=== PATIENT | male | born 1995 | race Two or more races ===

== ENCOUNTER 2019-06-05 13:07 | Inpatient (IN) | payer OTHER ==
[~2019-06-05] VITALS: Ht 188 cm; Wt 111.4 kg
[2019-06-05] MEDS ORDERED: fentaNYL PF VIAL 100 MCG/2 ML VIAL IVP ONE (14:15)
[2019-06-05] MEDS ORDERED: IV NORMAL SALINE 1000ML BAG 1,000 ML IV ONE (14:15)
[2019-06-05] MEDS ORDERED: CLINDAMYCIN 600MG PREMIX 50 ML IV ONE (14:15)
[2019-06-05 14:26] LABS: BASO % 0 % (0-3); EOS % 0 % (0-3); HEMOGLOBIN 13.4 g/dL (13.0-17.5); LYMPH # 0.2 x10^3/uL (1.0-4.8); LYMPH % 2 % (24-48); MEAN CORPUSCULAR HEMOGLOBIN 30 pg (25-35); MEAN CORPUSCULAR HGB CONC 34 g/dL (31-37); MEAN CORPUSCULAR VOLUME 90 fL (79-100); MONO # 0.7 x10^3/uL (0.0-1.1); MONO % 6 % (0-9); NEUT # 11.4 x10^3/uL (1.8-7.7); NEUT % 92 % (31-73); PLATELET COUNT 217 x10^3/uL (140-400); RED BLOOD COUNT 4.45 x10^6/uL (4.30-5.70); RED CELL DISTRIBUTION WIDTH 14.2 % (11.5-14.5); WHITE BLOOD COUNT 12.4 x10^3/uL (4.0-11.0)
[2019-06-05 14:37] LABS: CALCIUM 8.3 mg/dL (8.5-10.1); POTASSIUM 3.5 mmol/L (3.5-5.1)
[2019-06-05 14:43] LABS: ALBUMIN 3.6 g/dL (3.4-5.0); TOTAL BILIRUBIN 1.2 mg/dL (0.2-1.0); TOTAL PROTEIN 7.3 g/dL (6.4-8.2)
[2019-06-05] MEDS ORDERED: CONTRAST GIVEN. MC PRN (15:00)
[2019-06-05] MEDS ORDERED: IOHEXOL 300 MG/ML 100ML VIAL. IV ONE (15:00)
--- NOTE | 2019-06-05 15:04 | RAD ---
PORTABLE CHEST 1V Clinical indications: Fever. Abscess. COMPARISON: None available. Findings: No acute lung infiltrate or pleural effusion or pulmonary edema or lung mass or pneumothorax is seen. The heart size, pulmonary vasculature, mediastinum and both anjel are unremarkable. Impression: No acute radiographic abnormality is seen. Electronically signed by: Chau Long MD (06/05/2019 3:02 PM) [facility] [place]
[2019-06-05 15:32] LABS: % BANDS 13 % (0-9); % EOS 1 % (0-5); % LYMPHS 1 % (24-48); % MONOS 5 % (0-10); % SEGS 80 % (35-66); PLT ESTIMATE ADEQUATE (ADEQUATE)
[2019-06-05 15:33] LABS: BILIRUBIN,URINE NEGATIVE (NEG); CLARITY,URINE CLEAR; COLOR,URINE YELLOW; NITRITE,URINE NEGATIVE (NEG); PH,URINE 7.5 (<5.0-8.0); PROTEIN,URINE NEGATIVE (NEG-TRACE); UROBILINOGEN,URINE 0.2 mg/dL (0.2 mg/dL)
--- NOTE | 2019-06-05 15:39 | RAD ---
Exam: CT maxillofacial with contrast INDICATION: Evaluate for dental abscess, right jaw TECHNIQUE: Sequential axial images through the maxillofacial obtained following the administration of 75 mL of Omni 300 IV contrast. Sagittal and coronal reformatted images were reconstructed from the axial data and reviewed. Comparisons: None FINDINGS: Visualized intracranial structures are unremarkable. Mucosal thickening is noted within the right maxillary sinus. Globes and intraorbital contents are normal. Periapical lucency surrounding the first left mandibular molar with cortical breakthrough along the buccal surface of the mandibular cortex. No focal fluid collection is identified. There is soft tissue edema overlying the cortical surface of the left mandible at the area of periapical lucency. Periapical lucency surrounding the right first maxillary molar with cortical breakthrough into the maxillary sinus. No acute fracture. IMPRESSION: 1. Periapical lucency surrounding the first right maxillary molar with cortical breakthrough into the right maxillary sinus. There is mucosal thickening in the right maxillary sinus. 2. Periapical lucency surrounding the first left mandibular molar with cortical breakthrough along the buccal surface of the mandibular cortex. Mild surrounding soft tissue thickening/inflammation without focal fluid collections suggest abscess. Exposure: One or more of the following in the visualized dose reduction techniques were utilized for this examination: 1. Automated exposure control 2. Adjustment of the MA and/or KV according to patient size 3. Use of iterative of reconstructive technique Electronically signed by: Salvador Jimenez MD (06/05/2019 3:36 PM) [id number]
[2019-06-05 15:40] LABS: BACTERIA,URINE 0 /HPF (0-FEW); RBC,URINE 0 /HPF (0-2); WBC,URINE OCC /HPF (0-4)
[2019-06-05] MEDS ORDERED: MORPHINE SULFATE 4 MG/ML VIAL. IV PRN (16:00)
--- NOTE | 2019-06-05 16:43 | PDOC1 ---
History and Physical Date of Admission Date of Admission DATE: 06/05/19 TIME: 16:38 Identification/Chief Complaint Chief Complaint "My head is melting" Source Source: Chart review, Patient History of Present Illness History of Present Illness Mr Bragg is a 23yo male incarcerated since 2017 with no PMHx who presents from correctional facility c/o feeling feverish and states his head is melting. Referred from the physician at [facility] and Dr. Moyer for tachycardia and fever on 06/04/2019 in the evening with facial swelling. Was given rocephin and flagyl in [facility] and continued to have pain in his jaw, face, head. In ED tachycardic, afebrile, but WBC 12.4 with left shift. K 3.5, bili 1.2, AST 240, ALT 431 No Abdominal pain, just feels strange and like his head is melting. Pain 7/10. He denies any IVDA or recent sick contacts. No nausea or vomiting or abdominal pain. Denies CP or SOB. CT maxillofacial reveals lucency surrounding the first right maxillary molar with cortical breakthrough into the right maxillary sinus. There is mucosal thickening in the right maxillary sinus. Periapical lucency surrounding the first left mandibular molar with cortical breakthrough along the buccal surface of the mandibular cortex. Mild surrounding soft tissue thickening/inflammation without focal fluid collections suggest abscess. Oral surgeon called, started on IV antibiotics and admitted for further treatment and care Past Medical History Cardiovascular: No pertinent hx Pulmonary: No pertinent hx GI: No pertinent hx Heme/Onc: No pertinent hx Hepatobiliary: No pertinent hx Psych: No pertinent hx Rheumatologic: No pertinent hx Infectious disease: No pertinent hx ENT: No pertinent hx Renal/: No pertinent hx Endocrine: No pertinent hx Dermatology: No pertinent hx Past Surgical History Past Surgical History: No pertinent history Family History Family History: Diabetes (Mother), Hypertension Social History Smoke: <1 pack per day ALCOHOL: none Drugs: Marijuana Current Medications Current Medications Current Medications Sodium Chloride 1,000 ml @ 1,000 mls/hr 1X ONCE IV Last administered on 06/05/19at 15:15; Start 06/05/19 at 14:15; Stop 06/05/19 at 15:14; Status DC Fentanyl Citrate (Fentanyl 2ml Vial) 50 mcg 1X ONCE IVP ; Start 06/05/19 at 14:15; Stop 06/05/19 at 14:29; Status DC Clindamycin Phosphate 50 ml @ 100 mls/hr 1X ONCE IV Last administered on 06/05/19at 15:15; Start 06/05/19 at 14:15; Stop 06/05/19 at 14:44; Status DC Iohexol (Omnipaque 300 Mg/ml) 75 ml 1X ONCE IV Last administered on 06/05/19at 15:01; Start 06/05/19 at 15:00; Stop 06/05/19 at 15:01; Status DC Info (CONTRAST GIVEN -- Rx MONITORING) 1 each PRN DAILY PRN MC SEE COMMENTS; Start 06/05/19 at 15:00; Stop 06/07/19 at 14:59 Morphine Sulfate (Morphine Sulfate) 4 mg PRN Q2HR PRN IV PRN PAIN; Start 06/05/19 at 16:00; Stop 06/06/19 at 15:59 Sodium Chloride 1,000 ml @ 75 mls/hr [id number] IV ; Start 06/05/19 at 15:58; Stop 06/06/19 at 15:57 Allergies Allergies: Coded Allergies: No Known Drug Allergies (Unverified , 06/05/19) ROS General: YES: Chills, Night Sweats, Fatigue, Malaise; No: Appetite, Other PSYCHOLOGICAL ROS: YES: Anxiety; No: Behavioral Disorder, Concentration difficultie, Decreased libido, Depression, Disorientation, Hallucinations, Hostility, Irritablity, Memory difficulties, Mood Swings, Obsessive thoughts, Physical abuse, Sexual abuse, Sleep disturbances, Suicidal ideation, Other Eyes: No Blurry vision, No Decreased vision, No Double vision, No Dry eyes, No Excessive tearing, No Eye Pain, No Itchy Eyes, No Loss of vision, No Photophobia, No Scotomata, No Uses contacts, No Uses glasses, No Other HEENT: YES: Heacaches, Oral lesions, Sinus pain; No: Visual Changes, Hearing change, Nasal congestion, Nasal discharge, Sore Throat, Epistaxis, Sneezing, Snoring, Tinnitus, Vertigo, Vocal changes, Other ALLERGY AND IMMUNOLOGY: No: Hives, Insect Bite Sensitivity, Itchy/Watery Eyes, Nasal Congestion, Post Nasal Drip, Seasonal Allergies, Other Hematological and Lymphatic: No: Bleeding Problems, Blood Clots, Blood Transfusions, Brusing, Night Sweats, Pallor, Swollen Lymph Nodes, Other ENDOCRINE: No: Breast Changes, Galactorrhea, Hair Pattern Changes, Hot Flashes, Malaise/lethargy, Mood Swings, Palpitations, Polydipsia/polyuria, Skin Changes, Temperature Intolerance, Unexpected Weight Changes, Other Breast: No New/Changing Breast Lumps, No Nipple changes, No Nipple discharge, No Other Respiratory: No: Cough, Hemoptysis, Orthopnea, Pleuritic Pain, Shortness of breath, SOB with excertion, Sputum Changes, Stridor, Tachypnea, Wheezing, Other Cardiovascular: No Chest Pain, No Palpitations, No Orthopnea, No Paroxysmal Noc. Dyspnea, No Edema, No Lt Headedness, No Other Gastrointestinal: No Nausea, No Vomiting, No Abdominal Pain, No Diarrhea, No Constipation, No Melena, No Hematochezia, No Other Genitourinary: No Dysuria, No Frequency, No Incontinence, No Hematuria, No Retention, No Discharge, No Urgency, No Pain, No Flank Pain, No Other, No , No , No , No , No , No , No Musculoskeletal: No Gait Disturbance, No Joint Pain, No Joint Stiffness, No Joint Swelling, No Muscle Pain, No Muscular Weakness, No Pain In:, No Swelling In:, No Other Neurological: No Behavorial Changes, No Bowel/Bladder ControlChng, No Confusion, No Dizziness, No Gait Disturbance, No Headaches, No Impaired Coord/balance, No Memory Loss, No Numbness/Tingling, No Seizures, No Speech Problems, No Tremors, No Visual Changes, No Weakness, No Other Skin: No Dry Skin, No Eczema, No Hair Changes, No Lumps, No Mole Changes, No Mottling, No Nail Changes, No Pruritus, No Rash, No Skin Lesion Changes, No Other, No Acne Physical Exam General: Alert, Oriented X3, Cooperative, mild distress HEENT: Atraumatic, PERRLA, EOMI, Mucous membr. moist/pink, Other (Right maxillary tenderness and abscessed tooth and left mandibular abscessed tooth) Lungs: Clear to auscultation, Normal air movement Heart: S1S2, RRR, no thrills, no rubs, no gallops, no murmurs Abdomen: Normal bowel sounds, Soft, No tenderness, No hepatosplenomegaly, No masses Rectal Exam: not examined Extremities: No clubbing, No cyanosis, No edema, Normal pulses, No tenderness/swelling Skin: No rashes, No breakdown, No significant lesion Neuro: Normal gait, Normal speech, Strength at 5/5 X4 ext, Normal tone, Sens ation intact, Cranial nerves 3-12 NL, Reflexes 2+ Psych/Mental Status: Mental status NL, Mood NL Vitals Vitals Vital Signs Date Time Temp Pulse Resp B/P (MAP) Pulse Ox O2 Delivery O2 Flow Rate FiO2 06/05/19 13:08 99.3 92 17 133/66 (88) 97 Room Air 99.3 Labs Labs Laboratory Tests Test 06/05/19 13:40 06/05/19 15:20 White Blood Count 12.4 x10^3/uL (4.0-11.0) Red Blood Count 4.45 x10^6/uL (4.30-5.70) Hemoglobin 13.4 g/dL (13.0-17.5) Hematocrit 40.0 % (39.0-53.0) Mean Corpuscular Volume 90 fL (79-100) Mean Corpuscular Hemoglobin 30 pg (25-35) Mean Corpuscular Hemoglobin Concent 34 g/dL (31-37) Red Cell Distribution Width 14.2 % (11.5-14.5) Platelet Count 217 x10^3/uL (140-400) Neutrophils (%) (Auto) 92 % (31-73) Lymphocytes (%) (Auto) 2 % (24-48) Monocytes (%) (Auto) 6 % (0-9) Eosinophils (%) (Auto) 0 % (0-3) Basophils (%) (Auto) 0 % (0-3) Neutrophils # (Auto) 11.4 x10^3/uL (1.8-7.7) Lymphocytes # (Auto) 0.2 x10^3/uL (1.0-4.8) Monocytes # (Auto) 0.7 x10^3/uL (0.0-1.1) Eosinophils # (Auto) 0.0 x10^3/uL (0.0-0.7) Basophils # (Auto) 0.0 x10^3/uL (0.0-0.2) Segmented Neutrophils % 80 % (35-66) Band Neutrophils % 13 % (0-9) Lymphocytes % 1 % (24-48) Monocytes % 5 % (0-10) Eosinophils % 1 % (0-5) Platelet Estimate Adequate (ADEQUATE) Sodium Level 139 mmol/L (136-145) Potassium Level 3.5 mmol/L (3.5-5.1) Chloride Level 103 mmol/L (98-107) Carbon Dioxide Level 25 mmol/L (21-32) Anion Gap 11 (6-14) Blood Urea Nitrogen 8 mg/dL (8-26) Creatinine 1.0 mg/dL (0.7-1.3) Estimated GFR (Cockcroft-Gault) 91.0 BUN/Creatinine Ratio 8 (6-20) Glucose Level 119 mg/dL (70-99) Lactic Acid Level 1.4 mmol/L (0.4-2.0) Calcium Level 8.3 mg/dL (8.5-10.1) Total Bilirubin 1.2 mg/dL (0.2-1.0) Aspartate Amino Transf (AST/SGOT) 240 U/L (15-37) Alanine Aminotransferase (ALT/SGPT) 431 U/L (16-63) Alkaline Phosphatase 113 U/L (46-116) Total Protein 7.3 g/dL (6.4-8.2) Albumin 3.6 g/dL (3.4-5.0) Albumin/Globulin Ratio 1.0 (1.0-1.7) Urine Collection Type Unknown Urine Color Yellow Urine Clarity Clear Urine pH 7.5 (<5.0-8.0) Urine Specific [place] <=1.005 (1.000-1.030) Urine Protein Negative mg/dL (NEG-TRACE) Urine Glucose (UA) Negative mg/dL (NEG) Urine Ketones (Stick) Negative mg/dL (NEG) Urine Blood Negative (NEG) Urine Nitrite Negative (NEG) Urine Bilirubin Negative (NEG) Urine Urobilinogen Dipstick 0.2 mg/dL (0.2 mg/dL) Urine Leukocyte Esterase Negative (NEG) Urine RBC 0 /HPF (0-2) Urine WBC Occ /HPF (0-4) Urine Bacteria 0 /HPF (0-FEW) Laboratory Tests Test 06/05/19 13:40 06/05/19 15:20 White Blood Count 12.4 x10^3/uL (4.0-11.0) Red Blood Count 4.45 x10^6/uL (4.30-5.70) Hemoglobin 13.4 g/dL (13.0-17.5) Hematocrit 40.0 % (39.0-53.0) Mean Corpuscular Volume 90 fL (79-100) Mean Corpuscular Hemoglobin 30 pg (25-35) Mean Corpuscular Hemoglobin Concent 34 g/dL (31-37) Red Cell Distribution Width 14.2 % (11.5-14.5) Platelet Count 217 x10^3/uL (140-400) Neutrophils (%) (Auto) 92 % (31-73) Lymphocytes (%) (Auto) 2 % (24-48) Monocytes (%) (Auto) 6 % (0-9) Eosinophils (%) (Auto) 0 % (0-3) Basophils (%) (Auto) 0 % (0-3) Neutrophils # (Auto) 11.4 x10^3/uL (1.8-7.7) Lymphocytes # (Auto) 0.2 x10^3/uL (1.0-4.8) Monocytes # (Auto) 0.7 x10^3/uL (0.0-1.1) Eosinophils # (Auto) 0.0 x10^3/uL (0.0-0.7) Basophils # (Auto) 0.0 x10^3/uL (0.0-0.2) Segmented Neutrophils % 80 % (35-66) Band Neutrophils % 13 % (0-9) Lymphocytes % 1 % (24-48) Monocytes % 5 % (0-10) Eosinophils % 1 % (0-5) Platelet Estimate Adequate (ADEQUATE) Sodium Level 139 mmol/L (136-145) Potassium Level 3.5 mmol/L (3.5-5.1) Chloride Level 103 mmol/L (98-107) Carbon Dioxide Level 25 mmol/L (21-32) Anion Gap 11 (6-14) Blood Urea Nitrogen 8 mg/dL (8-26) Creatinine 1.0 mg/dL (0.7-1.3) Estimated GFR (Cockcroft-Gault) 91.0 BUN/Creatinine Ratio 8 (6-20) Glucose Level 119 mg/dL (70-99) Lactic Acid Level 1.4 mmol/L (0.4-2.0) Calcium Level 8.3 mg/dL (8.5-10.1) Total Bilirubin 1.2 mg/dL (0.2-1.0) Aspartate Amino Transf (AST/SGOT) 240 U/L (15-37) Alanine Aminotransferase (ALT/SGPT) 431 U/L (16-63) Alkaline Phosphatase 113 U/L (46-116) Total Protein 7.3 g/dL (6.4-8.2) Albumin 3.6 g/dL (3.4-5.0) Albumin/Globulin Ratio 1.0 (1.0-1.7) Urine Collection Type Unknown Urine Color Yellow Urine Clarity Clear Urine pH 7.5 (<5.0-8.0) Urine Specific [place] <=1.005 (1.000-1.030) Urine Protein Negative mg/dL (NEG-TRACE) Urine Glucose (UA) Negative mg/dL (NEG) Urine Ketones (Stick) Negative mg/dL (NEG) Urine Blood Negative (NEG) Urine Nitrite Negative (NEG) Urine Bilirubin Negative (NEG) Urine Urobilinogen Dipstick 0.2 mg/dL (0.2 mg/dL) Urine Leukocyte Esterase Negative (NEG) Urine RBC 0 /HPF (0-2) Urine WBC Occ /HPF (0-4) Urine Bacteria 0 /HPF (0-FEW) Images Images CT Maxillofacial: Visualized intracranial structures are unremarkable. Mucosal thickening is noted within the right maxillary sinus. Globes and intraorbital contents are normal. Periapical lucency surrounding the first left mandibular molar with cortical breakthrough along the buccal surface of the mandibular cortex. No focal fluid collection is identified. There is soft tissue edema overlying the cortical surface of the left mandible at the area of periapical lucency. Periapical lucency surrounding the right first maxillary molar with cortical br eakthrough into the maxillary sinus. No acute fracture. IMPRESSION: 1. Periapical lucency surrounding the first right maxillary molar with cortical breakthrough into the right maxillary sinus. There is mucosal thickening in the right maxillary sinus. 2. Periapical lucency surrounding the first left mandibular molar with cortical breakthrough along the buccal surface of the mandibular cortex. Mild surrounding soft tissue thickening/inflammation without focal fluid collections suggest abscess. CXR - Findings: No acute lung infiltrate or pleural effusion or pulmonary edema or lung mass or pneumothorax is seen. The heart size, pulmonary vasculature, mediastinum and both anjel are unremarkable. Impression: No acute radiographic abnormality is seen. RUQ US - Liver demonstrates homogenous echotexture. Hepatopedal flow noted within the portal vein. Gallstone noted within the neck of the gallbladder. Gallbladder wall measures 4 mm in diameter. No pericholecystic fluid. No sonographic Munroe sign. Common bile duct measures 4 mm in diameter. Right kidney measures 11.6 cm in length. No hydronephrosis. Visualized portions of the large and small bowel are unremarkable. IMPRESSION: 1. Cholelithiasis without secondary evidence of acute cholecystitis. 2. Normal sonographic appearance of the liver. 3. No right-sided hydronephrosis. VTE Prophylaxis Ordered VTE Prophylaxis Devices: Yes VTE Pharmacological Prophylaxi: No Assessment/Plan Assessment/Plan A/P: Right maxillary odontogenic infection - dental caries with concomitant sinusitis in maxilla. Maxillofacial surgery consulted. Empiric antibiotics Left mandibular odontogenic infection - dental caries with jaw infection as well. Same. Pain control Sepsis - likely 2/2 right maxillary sinus infection due to dental infection. Surgery consulted. Antibiotics given, fluids administered. Acute transaminitis - RUQ normal, will check hepatitis panel. 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 FEN - NPO after midnight PPX - SCDs FULL CODE Dispo - inpatient for maxillary tooth infection invading right maxillary sinus ADRIAN ORELLANA MD Jun 05, 2019 16:43
--- NOTE | 2019-06-05 16:46 | PHYS DOC ---
Past Medical History Past Medical History: No Pertinent History Past Surgical History: No Surgical History Smoking Status: Current Some Day Smoker Additional Information: Pt. admits to smoking marijuana Alcohol Use: None Adult General Chief Complaint Chief Complaint: ABSCESS HPI HPI Patient is a 23 year old M REFERRED FROM SNF WITH FEVER AND FACIAL/JAW PAIN. ONSET YESTERDAY WAS TACHYCARDIC AND FEBRILE LAST NIGHT, HAD FACIAL SWELLING. GOT CEFTRIAXONE AND FLAGYL. THIS AM STILL TACHY [facility] MD CALLED DR SPEARS (WHO I ALSO SPOKE WITH) AND ASKED TO BE TRANSFERRED TO [facility] FOR ADMISSION AND EVLUATION PATIENT STATES HE KNOWS HE HAS BAD TEETH, PAIN MODERATE THROBBING RIGHT FACE RADIATES DIFFUSELY. NO COUGH, NO SOB DENIES ABDO PAIN Review of Systems Review of Systems Constitutional: Eyes: Denies change in visual acuity, redness, or eye pain [] HENT: Denies nasal congestion or sore throat [] Respiratory: Denies cough or shortness of breath [] Cardiovascular: No additional information not addressed in HPI [] Neurologic: Denies headache, focal weakness or sensory changes [] Endocrine: Denies polyuria or polydipsia [] All other systems were reviewed and found to be within normal limits, except as documented in this note. Current Medications Current Medications Current Medications Medications (Trade) Dose Ordered Sig/Kirti Start Time Stop Time Status Last Admin Dose Admin Clindamycin Phosphate 50 ml @ 100 mls/hr 1X ONCE 06/05/19 14:15 06/05/19 14:44 DC 06/05/19 15:15 100 MLS/HR Fentanyl Citrate (Fentanyl 2ml Vial) 50 mcg 1X ONCE 06/05/19 14:15 06/05/19 14:29 DC Info (CONTRAST GIVEN -- Rx MONITORING) 1 each PRN DAILY PRN 06/05/19 15:00 06/07/19 14:59 Iohexol (Omnipaque 300 Mg/ml) 75 ml 1X ONCE 06/05/19 15:00 06/05/19 15:01 DC 06/05/19 15:01 75 ML Morphine Sulfate (Morphine Sulfate) 4 mg PRN Q2HR PRN 06/05/19 16:00 06/06/19 15:59 Sodium Chloride 1,000 ml @ 75 mls/hr [id number] 06/05/19 15:58 3/20/20 15:57 Allergies Allergies Allergies Coded Allergies Type Severity Reaction Last Updated Verified No Known Drug Allergies 06/05/19 No Physical Exam Physical Exam Constitutional: Well developed, well nourished, no acute distress, non-toxic appearance. [] HENT: SWELLING NOTED TO RIGHT FACE, RIGHT MAXILLARY IS TTP NOTED. MILD SWELLING. POOR DENTITION. RIGHT MAXIALLARY GUM AREA ALSO SWOLLEN. Eyes: PERRLA, EOMI, conjunctiva normal, no discharge. [] Neck: Normal range of motion, no tenderness, supple, no stridor. [] Cardiovascular:Heart rate regular rhythm, no murmur [] Lungs & Thorax: Bilateral breath sounds clear to auscultation [] Abdomen: Bowel sounds normal, soft, no tenderness, no masses, no pulsatile masses. [] Skin: Warm, dry, no erythema, no rash. [] Back: No tenderness, no CVA tenderness. [] Extremities: No tenderness, no cyanosis, no clubbing, ROM intact, no edema. [] Neurologic: Alert and oriented X 3, normal motor function, normal sensory function, no focal deficits noted. [] Psychologic: Affect normal, judgement normal, mood normal. [] Current Patient Data Vital Signs Vital Signs Date Time Temp Pulse Resp B/P (MAP) Pulse Ox O2 Delivery O2 Flow Rate FiO2 06/05/19 13:08 99.3 92 17 133/66 (88) 97 Room Air 99.3 Lab Values Laboratory Tests Test 06/05/19 13:40 06/05/19 15:20 White Blood Count 12.4 x10^3/uL (4.0-11.0) H Red Blood Count 4.45 x10^6/uL (4.30-5.70) Hemoglobin 13.4 g/dL (13.0-17.5) Hematocrit 40.0 % (39.0-53.0) Mean Corpuscular Volume 90 fL (79-100) Mean Corpuscular Hemoglobin 30 pg (25-35) Mean Corpuscular Hemoglobin Concent 34 g/dL (31-37) Red Cell Distribution Width 14.2 % (11.5-14.5) Platelet Count 217 x10^3/uL (140-400) Neutrophils (%) (Auto) 92 % (31-73) H Lymphocytes (%) (Auto) 2 % (24-48) L Monocytes (%) (Auto) 6 % (0-9) Eosinophils (%) (Auto) 0 % (0-3) Basophils (%) (Auto) 0 % (0-3) Neutrophils # (Auto) 11.4 x10^3/uL (1.8-7.7) H Lymphocytes # (Auto) 0.2 x10^3/uL (1.0-4.8) L Monocytes # (Auto) 0.7 x10^3/uL (0.0-1.1) Eosinophils # (Auto) 0.0 x10^3/uL (0.0-0.7) Basophils # (Auto) 0.0 x10^3/uL (0.0-0.2) Segmented Neutrophils % 80 % (35-66) H Band Neutrophils % 13 % (0-9) H Lymphocytes % 1 % (24-48) L Monocytes % 5 % (0-10) Eosinophils % 1 % (0-5) Platelet Estimate Adequate (ADEQUATE) Sodium Level 139 mmol/L (136-145) Potassium Level 3.5 mmol/L (3.5-5.1) Chloride Level 103 mmol/L (98-107) Carbon Dioxide Level 25 mmol/L (21-32) Anion Gap 11 (6-14) Blood Urea Nitrogen 8 mg/dL (8-26) Creatinine 1.0 mg/dL (0.7-1.3) Estimated GFR (Cockcroft-Gault) 91.0 BUN/Creatinine Ratio 8 (6-20) Glucose Level 119 mg/dL (70-99) H Lactic Acid Level 1.4 mmol/L (0.4-2.0) Calcium Level 8.3 mg/dL (8.5-10.1) L Total Bilirubin 1.2 mg/dL (0.2-1.0) H Aspartate Amino Transferase (AST) 240 U/L (15-37) H Alanine Aminotransferase (ALT) 431 U/L (16-63) H Alkaline Phosphatase 113 U/L (46-116) Total Protein 7.3 g/dL (6.4-8.2) Albumin 3.6 g/dL (3.4-5.0) Albumin/Globulin Ratio 1.0 (1.0-1.7) Urine Collection Type Unknown Urine Color Yellow Urine Clarity Clear Urine pH 7.5 (<5.0-8.0) Urine Specific [place] <=1.005 (1.000-1.030) Urine Protein Negative mg/dL (NEG-TRACE) Urine Glucose (UA) Negative mg/dL (NEG) Urine Ketones (Stick) Negative mg/dL (NEG) Urine Blood Negative (NEG) Urine Nitrite Negative (NEG) Urine Bilirubin Negative (NEG) Urine Urobilinogen Dipstick 0.2 mg/dL (0.2 mg/dL) Urine Leukocyte Esterase Negative (NEG) Urine RBC 0 /HPF (0-2) Urine WBC Occ /HPF (0-4) Urine Bacteria 0 /HPF (0-FEW) Laboratory Tests 06/05/19 13:40 Laboratory Tests 06/05/19 13:40 EKG EKG [] Radiology/Procedures Radiology/Procedures [] COMPARISON: None available. Findings: No acute lung infiltrate or pleural effusion or pulmonary edema or lung mass or pneumothorax is seen. The heart size, pulmonary vasculature, mediastinum and both anjel are unremarkable. Impression: No acute radiographic abnormality is seen. Electronically signed by: Caitlin Long MD (06/05/2019 3:02 PM) [facility] DICTATED and SIGNED BY: CAITLIN LONG MD DATE: 06/05/19 1502 No acute fracture. IMPRESSION: 1. Periapical lucency surrounding the first right maxillary molar with cortical breakthrough into the right maxillary sinus. There is mucosal thickening in the right maxillary sinus. 2. Periapical lucency surrounding the first left mandibular molar with cortical breakthrough along the buccal surface of the mandibular cortex. Mild surrounding soft tissue thickening/inflammation without focal fluid collections suggest abscess. Exposure: One or more of the following in the visualized dose reduction techniques were utilized for this examination: 1. Automated exposure control 2. Adjustment of the MA and/or KV according to patient size 3. Use of iterative of reconstructive technique Electronically signed by: Salvador Jimenez MD (06/05/2019 3:36 PM) [id number] Impressions: IMPRESSION: 1. Periapical lucency surrounding the first right maxillary molar with cortical breakthrough into the right maxillary sinus. There is mucosal thickening in the right maxillary sinus. 2. Periapical lucency surrounding the first left mandibular molar with cortical breakthrough along the buccal surface of the mandibular cortex. Mild surrounding soft tissue thickening/inflammation without focal fluid collections suggest abscess. Exposure: One or more of the following in the visualized dose reduction techniques were utilized for this examination: 1. Automated exposure control 2. Adjustment of the MA and/or KV according to patient size 3. Use of iterative of reconstructive technique Electronically signed by: Salvador Jimenez MD (06/05/2019 3:36 PM) [id number] Course & Med Decision Making Course & Med Decision Making Pertinent Labs and Imaging studies reviewed. (See chart for details) []23 YO PRISONER WITH FEVER FACIAL PAIN AND SWELLING, CT NOTED ABOVE, LIKLEY ODONTOGENIC INFECTION. NO DEFINITE DRAINABLE ABSCESS SEEN ON CT BUT CORTICAL BREAKTHROUGH TO MAXILLARY SINUS NOTED. IV ABX GIVEN I HAD SPOKEN WITH DR SPEARS PRIOR TO THE PATIENTS ARRIVAL ASKED FOR HOSPITALIST ADMIT AND HE WILL CONSULT. I SPOKE WITH DR ORELLANA NOTED ELEV LFT'S, RUQ U/S IS PENDING. PT DENIES ETOH, DENIES PREVIOUS MEDICAL HISTORY, NO RUQ TTP ON EXAM. PATIENT IS AWAKE AND ALERT, SUPPLE NECK Dragon Disclaimer Dragon Disclaimer This electronic medical record was generated, in whole or in part, using a voice recognition dictation system. Departure Departure Impression: Primary Impression: Odontogenic infection of jaw Disposition: ADMITTED INPATIENT Admitting Physician: FEDE Condition: STABLE Referrals: NO PCP (PCP) SLIME MARQUEZ MD Jun 05, 2019 16:46
--- NOTE | 2019-06-05 16:57 | RAD ---
Exam: Ultrasound abdomen limited Indication: Elevated LFTs Technique: Real-time grayscale and color Doppler images of the right upper quadrant were obtained by the department insurance claims specialist. Comparisons: None FINDINGS: Liver demonstrates homogenous echotexture. Hepatopedal flow noted within the portal vein. Gallstone noted within the neck of the gallbladder. Gallbladder wall measures 4 mm in diameter. No pericholecystic fluid. No sonographic Munroe sign. Common bile duct measures 4 mm in diameter. Right kidney measures 11.6 cm in length. No hydronephrosis. Visualized portions of the large and small bowel are unremarkable. IMPRESSION: 1. Cholelithiasis without secondary evidence of acute cholecystitis. 2. Normal sonographic appearance of the liver. 3. No right-sided hydronephrosis. Electronically signed by: Salvador Jimenez MD (06/05/2019 4:54 PM) [id number]
[2019-06-05] MEDS ORDERED: ONDANSETRON PF 4 MG/2 ML VIAL. IV PRN (17:45)
[2019-06-05] MEDS ORDERED: DOCUSATE SODIUM 100 MG CAPSULE. PO PRN (17:45)
[2019-06-05] MEDS ORDERED: ACETAMINOPHEN 325 MG TABLET. PO PRN (17:45)
[2019-06-05] MEDS ORDERED: LIDOCAINE 2% VISCOUS 15 ML SOLUTION. SWSW PRN (17:45)
[2019-06-05 17:50] VITALS: BP 129/75
[2019-06-05] MEDS: KETOROLAC 30 MG/ML VIAL. IVP PRN (17:57)
[2019-06-05] MEDS: PIPERACILLIN/TAZOBACTAM 3.375 GM in IV NORMAL SALINE 50ML 50 ML IV SCH ×2 (17:57→23:16)
[2019-06-05] MEDS: IV NORMAL SALINE 1000ML BAG 1,000 ML IV SCH (17:57)
--- NOTE | 2019-06-05 18:20 | PDOC1 ---
History and Physical Date of Admission Date of Admission 06/05/2019 Identification/Chief Complaint Chief Complaint Bilateral facial pain Headache Problems: (1) Odontogenic infection of jaw Source Source: Patient History of Present Illness History of Present Illness Pt reports weeks of pain, alleviated somewhat by antibiotics Pt states that he missed his appointment for extraction the other day Past Medical History Cardiovascular: No pertinent hx Pulmonary: No pertinent hx GI: No pertinent hx Heme/Onc: No pertinent hx Hepatobiliary: No pertinent hx, Other (recent spike in labs, see note/labs) Psych: No pertinent hx Rheumatologic: No pertinent hx Infectious disease: No pertinent hx ENT: No pertinent hx Renal/: No pertinent hx Endocrine: No pertinent hx Dermatology: No pertinent hx Past Surgical History Past Surgical History: No pertinent history Family History Family History: Diabetes (Mother), Hypertension Social History Smoke: Quit ALCOHOL: other (history) Drugs: Marijuana, Other (previous use) Current Problem List Problem List Problems Medical Problems: (1) Odontogenic infection of jaw Status: Acute Current Medications Current Medications Current Medications Medications (Trade) Dose Ordered Sig/Kirti Start Time Stop Time Status Last Admin Dose Admin Acetaminophen (Tylenol) 650 mg PRN Q4HRS PRN 06/05/19 17:45 Clindamycin Phosphate 50 ml @ 100 mls/hr 1X ONCE 06/05/19 14:15 06/05/19 14:44 DC 06/05/19 15:15 100 MLS/HR Docusate Sodium (Colace) 100 mg PRN BID PRN 06/05/19 17:45 Fentanyl Citrate (Fentanyl 2ml Vial) 50 mcg 1X ONCE 06/05/19 14:15 06/05/19 14:29 DC Info (CONTRAST GIVEN -- Rx MONITORING) 1 each PRN DAILY PRN 06/05/19 15:00 06/07/19 14:59 Iohexol (Omnipaque 300 Mg/ml) 75 ml 1X ONCE 06/05/19 15:00 06/05/19 15:01 DC 06/05/19 15:01 75 ML Ketorolac Tromethamine (Toradol 30mg Vial) 30 mg PRN Q6HRS PRN 06/05/19 17:45 06/10/19 17:44 06/05/19 17:57 30 MG Lidocaine HCl (Viscous Lidocaine) 15 ml PRN Q4HRS PRN 06/05/19 17:45 Metronidazole 100 ml @ 100 mls/hr Q8HRS 06/05/19 18:30 Morphine Sulfate (Morphine Sulfate) 4 mg PRN Q2HR PRN 06/05/19 16:00 06/06/19 15:59 Ondansetron HCl (Zofran) 4 mg PRN Q4HRS PRN 06/05/19 17:45 Piperacillin Sod/ Tazobactam Sod 3.375 gm/Sodium Chloride 50 ml @ 100 mls/hr Q6HRS 06/05/19 18:00 06/05/19 17:57 100 MLS/HR Sodium Chloride 1,000 ml @ 75 mls/hr [id number] 06/05/19 15:58 06/06/19 15:57 06/05/19 17:57 75 MLS/HR Tramadol HCl (Ultram) 50 mg PRN Q6HRS PRN 06/05/19 18:00 Allergies Allergies Allergies Coded Allergies Type Severity Reaction Last Updated Verified No Known Drug Allergies 06/05/19 No ROS Review of System CONSTITUTIONAL: fever (low risk for COVID 19, inmate at [facility]) EYES: No recent changes SKIN: No rash or itching CARDIOVASCULAR: No chest pain, syncope, palpitations, or edema RESPIRATORY: No SOB or cough GASTROINTESTINAL: No nausea, vomiting or abdominal pain ++odontogenic pain ++ NEUROLOGICAL: No headaches or weakness ENDOCRINE: No cold or heat intolerance GENITOURINARY: No urgency or frequency of urination MUSCULOSKELETAL: No back pain or joint pain LYMPHATICS: No enlarged lymph nodes PSYCHIATRIC: No anxiety or depression Physical Exam Physical Exam GEN.: No apparent distress. Alert and oriented. HEENT: Head is normocephalic, atraumatic +mild buccal pain at # 1,2 and 18 (2, 18 fractured below gumline) + inferior boarder of mandible is palpable SANTOSH > 40mm, FOM supple, FROM tongue, uvula at midline NECK: Supple. FROM neck LUNGS: Clear to auscultation. HEART: RRR, S1, S2 present. Peripheral pulses intact ABDOMEN: Soft, nontender. Positive bowel sounds. EXTREMITIES: Without any cyanosis. NEUROLOGIC: Normal speech, normal tone PSYCHIATRIC: Normal affect, normal mood. SKIN: No ulcerations Vitals Vitals Vital Signs Date Time Temp Pulse Resp B/P (MAP) Pulse Ox O2 Delivery O2 Flow Rate FiO2 06/05/19 17:50 98.1 89 16 129/75 (93) 98 Room Air 98.1 Labs Labs Laboratory Tests Test 06/05/19 13:40 06/05/19 15:20 White Blood Count 12.4 x10^3/uL (4.0-11.0) Red Blood Count 4.45 x10^6/uL (4.30-5.70) Hemoglobin 13.4 g/dL (13.0-17.5) Hematocrit 40.0 % (39.0-53.0) Mean Corpuscular Volume 90 fL (79-100) Mean Corpuscular Hemoglobin 30 pg (25-35) Mean Corpuscular Hemoglobin Concent 34 g/dL (31-37) Red Cell Distribution Width 14.2 % (11.5-14.5) Platelet Count 217 x10^3/uL (140-400) Neutrophils (%) (Auto) 92 % (31-73) Lymphocytes (%) (Auto) 2 % (24-48) Monocytes (%) (Auto) 6 % (0-9) Eosinophils (%) (Auto) 0 % (0-3) Basophils (%) (Auto) 0 % (0-3) Neutrophils # (Auto) 11.4 x10^3/uL (1.8-7.7) Lymphocytes # (Auto) 0.2 x10^3/uL (1.0-4.8) Monocytes # (Auto) 0.7 x10^3/uL (0.0-1.1) Eosinophils # (Auto) 0.0 x10^3/uL (0.0-0.7) Basophils # (Auto) 0.0 x10^3/uL (0.0-0.2) Segmented Neutrophils % 80 % (35-66) Band Neutrophils % 13 % (0-9) Lymphocytes % 1 % (24-48) Monocytes % 5 % (0-10) Eosinophils % 1 % (0-5) Platelet Estimate Adequate (ADEQUATE) Sodium Level 139 mmol/L (136-145) Potassium Level 3.5 mmol/L (3.5-5.1) Chloride Level 103 mmol/L (98-107) Carbon Dioxide Level 25 mmol/L (21-32) Anion Gap 11 (6-14) Blood Urea Nitrogen 8 mg/dL (8-26) Creatinine 1.0 mg/dL (0.7-1.3) Estimated GFR (Cockcroft-Gault) 91.0 BUN/Creatinine Ratio 8 (6-20) Glucose Level 119 mg/dL (70-99) Lactic Acid Level 1.4 mmol/L (0.4-2.0) Calcium Level 8.3 mg/dL (8.5-10.1) Total Bilirubin 1.2 mg/dL (0.2-1.0) Aspartate Amino Transf (AST/SGOT) 240 U/L (15-37) Alanine Aminotransferase (ALT/SGPT) 431 U/L (16-63) Alkaline Phosphatase 113 U/L (46-116) Total Protein 7.3 g/dL (6.4-8.2) Albumin 3.6 g/dL (3.4-5.0) Albumin/Globulin Ratio 1.0 (1.0-1.7) Thyroid Stimulating Hormone (TSH) 0.434 uIU/mL (0.358-3.74) Urine Collection Type Unknown Urine Color Yellow Urine Clarity Clear Urine pH 7.5 (<5.0-8.0) Urine Specific [place] <=1.005 (1.000-1.030) Urine Protein Negative mg/dL (NEG-TRACE) Urine Glucose (UA) Negative mg/dL (NEG) Urine Ketones (Stick) Negative mg/dL (NEG) Urine Blood Negative (NEG) Urine Nitrite Negative (NEG) Urine Bilirubin Negative (NEG) Urine Urobilinogen Dipstick 0.2 mg/dL (0.2 mg/dL) Urine Leukocyte Esterase Negative (NEG) Urine RBC 0 /HPF (0-2) Urine WBC Occ /HPF (0-4) Urine Bacteria 0 /HPF (0-FEW) Laboratory Tests Test 06/05/19 13:40 06/05/19 15:20 White Blood Count 12.4 x10^3/uL (4.0-11.0) Red Blood Count 4.45 x10^6/uL (4.30-5.70) Hemoglobin 13.4 g/dL (13.0-17.5) Hematocrit 40.0 % (39.0-53.0) Mean Corpuscular Volume 90 fL (79-100) Mean Corpuscular Hemoglobin 30 pg (25-35) Mean Corpuscular Hemoglobin Concent 34 g/dL (31-37) Red Cell Distribution Width 14.2 % (11.5-14.5) Platelet Count 217 x10^3/uL (140-400) Neutrophils (%) (Auto) 92 % (31-73) Lymphocytes (%) (Auto) 2 % (24-48) Monocytes (%) (Auto) 6 % (0-9) Eosinophils (%) (Auto) 0 % (0-3) Basophils (%) (Auto) 0 % (0-3) Neutrophils # (Auto) 11.4 x10^3/uL (1.8-7.7) Lymphocytes # (Auto) 0.2 x10^3/uL (1.0-4.8) Monocytes # (Auto) 0.7 x10^3/uL (0.0-1.1) Eosinophils # (Auto) 0.0 x10^3/uL (0.0-0.7) Basophils # (Auto) 0.0 x10^3/uL (0.0-0.2) Segmented Neutrophils % 80 % (35-66) Band Neutrophils % 13 % (0-9) Lymphocytes % 1 % (24-48) Monocytes % 5 % (0-10) Eosinophils % 1 % (0-5) Platelet Estimate Adequate (ADEQUATE) Sodium Level 139 mmol/L (136-145) Potassium Level 3.5 mmol/L (3.5-5.1) Chloride Level 103 mmol/L (98-107) Carbon Dioxide Level 25 mmol/L (21-32) Anion Gap 11 (6-14) Blood Urea Nitrogen 8 mg/dL (8-26) Creatinine 1.0 mg/dL (0.7-1.3) Estimated GFR (Cockcroft-Gault) 91.0 BUN/Creatinine Ratio 8 (6-20) Glucose Level 119 mg/dL (70-99) Lactic Acid Level 1.4 mmol/L (0.4-2.0) Calcium Level 8.3 mg/dL (8.5-10.1) Total Bilirubin 1.2 mg/dL (0.2-1.0) Aspartate Amino Transf (AST/SGOT) 240 U/L (15-37) Alanine Aminotransferase (ALT/SGPT) 431 U/L (16-63) Alkaline Phosphatase 113 U/L (46-116) Total Protein 7.3 g/dL (6.4-8.2) Albumin 3.6 g/dL (3.4-5.0) Albumin/Globulin Ratio 1.0 (1.0-1.7) Thyroid Stimulating Hormone (TSH) 0.434 uIU/mL (0.358-3.74) Urine Collection Type Unknown Urine Color Yellow Urine Clarity Clear Urine pH 7.5 (<5.0-8.0) Urine Specific [place] <=1.005 (1.000-1.030) Urine Protein Negative mg/dL (NEG-TRACE) Urine Glucose (UA) Negative mg/dL (NEG) Urine Ketones (Stick) Negative mg/dL (NEG) Urine Blood Negative (NEG) Urine Nitrite Negative (NEG) Urine Bilirubin Negative (NEG) Urine Urobilinogen Dipstick 0.2 mg/dL (0.2 mg/dL) Urine Leukocyte Esterase Negative (NEG) Urine RBC 0 /HPF (0-2) Urine WBC Occ /HPF (0-4) Urine Bacteria 0 /HPF (0-FEW) Images Images no fluid loculation non restorable # 1, 2, 18 supraeruption of #1 Destruction of bone around 1,2,18 Destruction of bone above #2 into sinus cavity VTE Prophylaxis Ordered VTE Prophylaxis Devices: Yes VTE Pharmacological Prophylaxi: No Assessment/Plan Assessment/Plan 23 yom inmate at [facility] 1-2 weeks of increasing odontogenic pain (Upper right and lower left) non restorable teeth # 1, 2 and # 18 local vestibular abscess upper right face, and lower left face PLAN: Feed now, until midnight 06.05.19 Make NPO after Midnight for surgery 06.06.2019 To OR tomorrow afternoon (2-3pm) for extraction of abscessed and non restorable teeth #1,2, 18 Incision and drainage and debridement of upper right maxilla and lower left mandible (intraoral incisions) Will book sx 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 Amaro (and ID if needed) ROSANGELA SPEARS DMD Jun 05, 2019 18:20
[2019-06-05 19:30] VITALS: BP 115/45
[2019-06-05 23:22] VITALS: BP 120/50
[2019-06-05] MEDS: traMADol 50 MG TABLET PO PRN (23:25)
[2019-06-06] MEDS: KETOROLAC 30 MG/ML VIAL. IVP PRN ×2 (01:41→23:35)
[2019-06-06 03:50] VITALS: BP 112/70
[2019-06-06 05:09] LABS: BASO % 0 % (0-3); EOS # 0.3 x10^3/uL (0.0-0.7); EOS % 4 % (0-3); HEMATOCRIT 35.5 % (39.0-53.0); LYMPH # 1.1 x10^3/uL (1.0-4.8); LYMPH % 17 % (24-48); MEAN CORPUSCULAR HEMOGLOBIN 31 pg (25-35); MEAN CORPUSCULAR HGB CONC 34 g/dL (31-37); MEAN CORPUSCULAR VOLUME 91 fL (79-100); MONO # 0.6 x10^3/uL (0.0-1.1); MONO % 9 % (0-9); NEUT # 4.4 x10^3/uL (1.8-7.7); NEUT % 69 % (31-73); PLATELET COUNT 176 x10^3/uL (140-400); RED BLOOD COUNT 3.91 x10^6/uL (4.30-5.70); RED CELL DISTRIBUTION WIDTH 14.3 % (11.5-14.5); WHITE BLOOD COUNT 6.4 x10^3/uL (4.0-11.0)
[2019-06-06 05:22] LABS: ALBUMIN/GLOBULIN RATIO 0.9 (1.0-1.7); CALCIUM 7.8 mg/dL (8.5-10.1); POTASSIUM 3.7 mmol/L (3.5-5.1); TOTAL PROTEIN 6.2 g/dL (6.4-8.2)
[2019-06-06] MEDS: PIPERACILLIN/TAZOBACTAM 3.375 GM in IV NORMAL SALINE 50ML 50 ML IV SCH ×4 (05:38→23:35)
[2019-06-06 07:00] VITALS: BP_SYST 108
[2019-06-06] MEDS: IV NORMAL SALINE 1000ML BAG 1,000 ML IV SCH (07:56)
[2019-06-06] MEDS: traMADol 50 MG TABLET PO PRN (07:56)
--- NOTE | 2019-06-06 08:19 | PDOC ---
PROGRESS NOTES Chief Complaint Chief Complaint A/P: Right maxillary odontogenic infection - dental caries with concomitant sinusitis in maxilla. Maxillofacial surgery consulted. Empiric antibiotics Left mandibular odontogenic infection - dental caries with jaw infection as well. Same. Pain control Sepsis - likely 2/2 right maxillary sinus infection due to dental infection. Surgery consulted. Antibiotics given, fluids administered. Acute transaminitis - RUQ normal, negative hepatitis panel, TSH is WNL. He denies IVDA, but his half-way guards note he has been near "[place] [employer]" while incarcerated Smoker - counseled on cessation. FEN - NPO after midnight PPX - SCDs FULL CODE Dispo - inpatient for maxillary tooth infection invading right maxillary sinus History of Present Illness History of Present Illness Mr Mars is a 23yo male incarcerated since 2017 with no PMHx who presents from correctional facility c/o feeling feverish and states his head is melting. Referred from the physician at [facility] and Dr. Moyer for tachycardia and fever on 06/04/2019 in the evening with facial swelling. Was given rocephin and flagyl in [facility] and continued to have pain in his jaw, face, head. In ED ta chycardic, afebrile, but WBC 12.4 with left shift. K 3.5, bili 1.2, AST 240, ALT 431 No Abdominal pain, just feels strange and like his head is melting. Pain 7/10. He denies any IVDA or recent sick contacts. No nausea or vomiting or abdominal pain. Denies CP or SOB. CT maxillofacial reveals lucency surrounding the first right maxillary molar with cortical breakthrough into the right maxillary sinus. There is mucosal thickening in the right maxillary sinus. Periapical lucency surrounding the first left mandibular molar with cortical breakthrough along the buccal surface of the mandibular cortex. Mild surrounding soft tissue thickening/inflammation without focal fluid collections suggest abscess. Oral surgeon called, started on IV antibiotics and admitted for further treatment and care Feels improved today. Afebrile. Pain controlled. LFTs improved. Hepatitis panel and thyroid function tests normal. NPO for OR today. No CP or SOB. Vitals Vitals Vital Signs Date Time Temp Pulse Resp B/P (MAP) Pulse Ox O2 Delivery O2 Flow Rate FiO2 06/06/19 07:56 18 Room Air 06/06/19 07:00 98.2 64 108/ 95 98.2 3/19/20 19:50 97.0 Physical Exam General: Alert, Oriented X3, Cooperative, mild distress Heart: Regular rate, Normal S1, Normal S2 Lungs: Clear Abdomen: Normal bowel sounds, Soft, No tenderness, No hepatosplenomegaly, No ma sses Extremities: No clubbing, No cyanosis, No edema, Normal pulses, No tenderness/swelling Skin: No rashes, No breakdown, No significant lesion Labs LABS Laboratory Tests Test 06/05/19 13:40 06/05/19 15:20 06/06/19 04:48 White Blood Count 12.4 x10^3/uL (4.0-11.0) 6.4 x10^3/uL (4.0-11.0) Red Blood Count 4.45 x10^6/uL (4.30-5.70) 3.91 x10^6/uL (4.30-5.70) Hemoglobin 13.4 g/dL (13.0-17.5) 12.0 g/dL (13.0-17.5) Hematocrit 40.0 % (39.0-53.0) 35.5 % (39.0-53.0) Mean Corpuscular Volume 90 fL (79-100) 91 fL (79-100) Mean Corpuscular Hemoglobin 30 pg (25-35) 31 pg (25-35) Mean Corpuscular Hemoglobin Concent 34 g/dL (31-37) 34 g/dL (31-37) Red Cell Distribution Width 14.2 % (11.5-14.5) 14.3 % (11.5-14.5) Platelet Count 217 x10^3/uL (140-400) 176 x10^3/uL (140-400) Neutrophils (%) (Auto) 92 % (31-73) 69 % (31-73) Lymphocytes (%) (Auto) 2 % (24-48) 17 % (24-48) Monocytes (%) (Auto) 6 % (0-9) 9 % (0-9) Eosinophils (%) (Auto) 0 % (0-3) 4 % (0-3) Basophils (%) (Auto) 0 % (0-3) 0 % (0-3) Neutrophils # (Auto) 11.4 x10^3/uL (1.8-7.7) 4.4 x10^3/uL (1.8-7.7) Lymphocytes # (Auto) 0.2 x10^3/uL (1.0-4.8) 1.1 x10^3/uL (1.0-4.8) Monocytes # (Auto) 0.7 x10^3/uL (0.0-1.1) 0.6 x10^3/uL (0.0-1.1) Eosinophils # (Auto) 0.0 x10^3/uL (0.0-0.7) 0.3 x10^3/uL (0.0-0.7) Basophils # (Auto) 0.0 x10^3/uL (0.0-0.2) 0.0 x10^3/uL (0.0-0.2) Segmented Neutrophils % 80 % (35-66) Band Neutrophils % 13 % (0-9) Lymphocytes % 1 % (24-48) Monocytes % 5 % (0-10) Eosinophils % 1 % (0-5) Platelet Estimate Adequate (ADEQUATE) Erythrocyte Sedimentation Rate 10 (0-15) Sodium Level 139 mmol/L (136-145) 145 mmol/L (136-145) Potassium Level 3.5 mmol/L (3.5-5.1) 3.7 mmol/L (3.5-5.1) Chloride Level 103 mmol/L (98-107) 110 mmol/L (98-107) Carbon Dioxide Level 25 mmol/L (21-32) 24 mmol/L (21-32) Anion Gap 11 (6-14) 11 (6-14) Blood Urea Nitrogen 8 mg/dL (8-26) 9 mg/dL (8-26) Creatinine 1.0 mg/dL (0.7-1.3) 1.0 mg/dL (0.7-1.3) Estimated GFR (Cockcroft-Gault) 91.0 91.0 BUN/Creatinine Ratio 8 (6-20) 9 (6-20) Glucose Level 119 mg/dL (70-99) 95 mg/dL (70-99) Lactic Acid Level 1.4 mmol/L (0.4-2.0) Calcium Level 8.3 mg/dL (8.5-10.1) 7.8 mg/dL (8.5-10.1) Total Bilirubin 1.2 mg/dL (0.2-1.0) 1.0 mg/dL (0.2-1.0) Aspartate Amino Transf (AST/SGOT) 240 U/L (15-37) 100 U/L (15-37) Alanine Aminotransferase (ALT/SGPT) 431 U/L (16-63) 287 U/L (16-63) Alkaline Phosphatase 113 U/L (46-116) 99 U/L (46-116) C-Reactive Protein, Quantitative 65.8 mg/L (0-3.3) Total Protein 7.3 g/dL (6.4-8.2) 6.2 g/dL (6.4-8.2) Albumin 3.6 g/dL (3.4-5.0) 3.0 g/dL (3.4-5.0) Albumin/Globulin Ratio 1.0 (1.0-1.7) 0.9 (1.0-1.7) Thyroid Stimulating Hormone (TSH) 0.434 uIU/mL (0.358-3.74) Hepatitis A IgM Antibody Nonreactive (Nonreactive) Hepatitis B Surface Antigen Nonreactive (Nonreactive) Hepatitis B Core IgM Antibody Nonreactive (Nonreactive) Hepatitis C IgG Antibody Nonreactive (Nonreactive) Urine Collection Type Unknown Urine Color Yellow Urine Clarity Clear Urine pH 7.5 (<5.0-8.0) Urine Specific [place] <=1.005 (1.000-1.030) Urine Protein Negative mg/dL (NEG-TRACE) Urine Glucose (UA) Negative mg/dL (NEG) Urine Ketones (Stick) Negative mg/dL (NEG) Urine Blood Negative (NEG) Urine Nitrite Negative (NEG) Urine Bilirubin Negative (NEG) Urine Urobilinogen Dipstick 0.2 mg/dL (0.2 mg/dL) Urine Leukocyte Esterase Negative (NEG) Urine RBC 0 /HPF (0-2) Urine WBC Occ /HPF (0-4) Urine Bacteria 0 /HPF (0-FEW) Assessment and Plan Assessmemt and Plan Problems Medical Problems: (1) Odontogenic infection of jaw Status: Acute Comment Review of Relevant I have reviewed the following items candice (where applicable) has been applied. Labs Laboratory Tests Test 06/05/19 13:40 06/05/19 15:20 06/06/19 04:48 White Blood Count 12.4 x10^3/uL (4.0-11.0) 6.4 x10^3/uL (4.0-11.0) Red Blood Count 4.45 x10^6/uL (4.30-5.70) 3.91 x10^6/uL (4.30-5.70) Hemoglobin 13.4 g/dL (13.0-17.5) 12.0 g/dL (13.0-17.5) Hematocrit 40.0 % (39.0-53.0) 35.5 % (39.0-53.0) Mean Corpuscular Volume 90 fL (79-100) 91 fL (79-100) Mean Corpuscular Hemoglobin 30 pg (25-35) 31 pg (25-35) Mean Corpuscular Hemoglobin Concent 34 g/dL (31-37) 34 g/dL (31-37) Red Cell Distribution Width 14.2 % (11.5-14.5) 14.3 % (11.5-14.5) Platelet Count 217 x10^3/uL (140-400) 176 x10^3/uL (140-400) Neutrophils (%) (Auto) 92 % (31-73) 69 % (31-73) Lymphocytes (%) (Auto) 2 % (24-48) 17 % (24-48) Monocytes (%) (Auto) 6 % (0-9) 9 % (0-9) Eosinophils (%) (Auto) 0 % (0-3) 4 % (0-3) Basophils (%) (Auto) 0 % (0-3) 0 % (0-3) Neutrophils # (Auto) 11.4 x10^3/uL (1.8-7.7) 4.4 x10^3/uL (1.8-7.7) Lymphocytes # (Auto) 0.2 x10^3/uL (1.0-4.8) 1.1 x10^3/uL (1.0-4.8) Monocytes # (Auto) 0.7 x10^3/uL (0.0-1.1) 0.6 x10^3/uL (0.0-1.1) Eosinophils # (Auto) 0.0 x10^3/uL (0.0-0.7) 0.3 x10^3/uL (0.0-0.7) Basophils # (Auto) 0.0 x10^3/uL (0.0-0.2) 0.0 x10^3/uL (0.0-0.2) Segmented Neutrophils % 80 % (35-66) Band Neutrophils % 13 % (0-9) Lymphocytes % 1 % (24-48) Monocytes % 5 % (0-10) Eosinophils % 1 % (0-5) Platelet Estimate Adequate (ADEQUATE) Erythrocyte Sedimentation Rate 10 (0-15) Sodium Level 139 mmol/L (136-145) 145 mmol/L (136-145) Potassium Level 3.5 mmol/L (3.5-5.1) 3.7 mmol/L (3.5-5.1) Chloride Level 103 mmol/L (98-107) 110 mmol/L (98-107) Carbon Dioxide Level 25 mmol/L (21-32) 24 mmol/L (21-32) Anion Gap 11 (6-14) 11 (6-14) Blood Urea Nitrogen 8 mg/dL (8-26) 9 mg/dL (8-26) Creatinine 1.0 mg/dL (0.7-1.3) 1.0 mg/dL (0.7-1.3) Estimated GFR (Cockcroft-Gault) 91.0 91.0 BUN/Creatinine Ratio 8 (6-20) 9 (6-20) Glucose Level 119 mg/dL (70-99) 95 mg/dL (70-99) Lactic Acid Level 1.4 mmol/L (0.4-2.0) Calcium Level 8.3 mg/dL (8.5-10.1) 7.8 mg/dL (8.5-10.1) Total Bilirubin 1.2 mg/dL (0.2-1.0) 1.0 mg/dL (0.2-1.0) Aspartate Amino Transf (AST/SGOT) 240 U/L (15-37) 100 U/L (15-37) Alanine Aminotransferase (ALT/SGPT) 431 U/L (16-63) 287 U/L (16-63) Alkaline Phosphatase 113 U/L (46-116) 99 U/L (46-116) C-Reactive Protein, Quantitative 65.8 mg/L (0-3.3) Total Protein 7.3 g/dL (6.4-8.2) 6.2 g/dL (6.4-8.2) Albumin 3.6 g/dL (3.4-5.0) 3.0 g/dL (3.4-5.0) Albumin/Globulin Ratio 1.0 (1.0-1.7) 0.9 (1.0-1.7) Thyroid Stimulating Hormone (TSH) 0.434 uIU/mL (0.358-3.74) Hepatitis A IgM Antibody Nonreactive (Nonreactive) Hepatitis B Surface Antigen Nonreactive (Nonreactive) Hepatitis B Core IgM Antibody Nonreactive (Nonreactive) Hepatitis C IgG Antibody Nonreactive (Nonreactive) Urine Collection Type Unknown Urine Color Yellow Urine Clarity Clear Urine pH 7.5 (<5.0-8.0) Urine Specific [place] <=1.005 (1.000-1.030) Urine Protein Negative mg/dL (NEG-TRACE) Urine Glucose (UA) Negative mg/dL (NEG) Urine Ketones (Stick) Negative mg/dL (NEG) Urine Blood Negative (NEG) Urine Nitrite Negative (NEG) Urine Bilirubin Negative (NEG) Urine Urobilinogen Dipstick 0.2 mg/dL (0.2 mg/dL) Urine Leukocyte Esterase Negative (NEG) Urine RBC 0 /HPF (0-2) Urine WBC Occ /HPF (0-4) Urine Bacteria 0 /HPF (0-FEW) Laboratory Tests Test 06/05/19 13:40 06/05/19 15:20 06/06/19 04:48 White Blood Count 12.4 x10^3/uL (4.0-11.0) 6.4 x10^3/uL (4.0-11.0) Red Blood Count 4.45 x10^6/uL (4.30-5.70) 3.91 x10^6/uL (4.30-5.70) Hemoglobin 13.4 g/dL (13.0-17.5) 12.0 g/dL (13.0-17.5) Hematocrit 40.0 % (39.0-53.0) 35.5 % (39.0-53.0) Mean Corpuscular Volume 90 fL (79-100) 91 fL (79-100) Mean Corpuscular Hemoglobin 30 pg (25-35) 31 pg (25-35) Mean Corpuscular Hemoglobin Concent 34 g/dL (31-37) 34 g/dL (31-37) Red Cell Distribution Width 14.2 % (11.5-14.5) 14.3 % (11.5-14.5) Platelet Count 217 x10^3/uL (140-400) 176 x10^3/uL (140-400) Neutrophils (%) (Auto) 92 % (31-73) 69 % (31-73) Lymphocytes (%) (Auto) 2 % (24-48) 17 % (24-48) Monocytes (%) (Auto) 6 % (0-9) 9 % (0-9) Eosinophils (%) (Auto) 0 % (0-3) 4 % (0-3) Basophils (%) (Auto) 0 % (0-3) 0 % (0-3) Neutrophils # (Auto) 11.4 x10^3/uL (1.8-7.7) 4.4 x10^3/uL (1.8-7.7) Lymphocytes # (Auto) 0.2 x10^3/uL (1.0-4.8) 1.1 x10^3/uL (1.0-4.8) Monocytes # (Auto) 0.7 x10^3/uL (0.0-1.1) 0.6 x10^3/uL (0.0-1.1) Eosinophils # (Auto) 0.0 x10^3/uL (0.0-0.7) 0.3 x10^3/uL (0.0-0.7) Basophils # (Auto) 0.0 x10^3/uL (0.0-0.2) 0.0 x10^3/uL (0.0-0.2) Segmented Neutrophils % 80 % (35-66) Band Neutrophils % 13 % (0-9) Lymphocytes % 1 % (24-48) Monocytes % 5 % (0-10) Eosinophils % 1 % (0-5) Platelet Estimate Adequate (ADEQUATE) Erythrocyte Sedimentation Rate 10 (0-15) Sodium Level 139 mmol/L (136-145) 145 mmol/L (136-145) Potassium Level 3.5 mmol/L (3.5-5.1) 3.7 mmol/L (3.5-5.1) Chloride Level 103 mmol/L (98-107) 110 mmol/L (98-107) Carbon Dioxide Level 25 mmol/L (21-32) 24 mmol/L (21-32) Anion Gap 11 (6-14) 11 (6-14) Blood Urea Nitrogen 8 mg/dL (8-26) 9 mg/dL (8-26) Creatinine 1.0 mg/dL (0.7-1.3) 1.0 mg/dL (0.7-1.3) Estimated GFR (Cockcroft-Gault) 91.0 91.0 BUN/Creatinine Ratio 8 (6-20) 9 (6-20) Glucose Level 119 mg/dL (70-99) 95 mg/dL (70-99) Lactic Acid Level 1.4 mmol/L (0.4-2.0) Calcium Level 8.3 mg/dL (8.5-10.1) 7.8 mg/dL (8.5-10.1) Total Bilirubin 1.2 mg/dL (0.2-1.0) 1.0 mg/dL (0.2-1.0) Aspartate Amino Transf (AST/SGOT) 240 U/L (15-37) 100 U/L (15-37) Alanine Aminotransferase (ALT/SGPT) 431 U/L (16-63) 287 U/L (16-63) Alkaline Phosphatase 113 U/L (46-116) 99 U/L (46-116) C-Reactive Protein, Quantitative 65.8 mg/L (0-3.3) Total Protein 7.3 g/dL (6.4-8.2) 6.2 g/dL (6.4-8.2) Albumin 3.6 g/dL (3.4-5.0) 3.0 g/dL (3.4-5.0) Albumin/Globulin Ratio 1.0 (1.0-1.7) 0.9 (1.0-1.7) Thyroid Stimulating Hormone (TSH) 0.434 uIU/mL (0.358-3.74) Hepatitis A IgM Antibody Nonreactive (Nonreactive) Hepatitis B Surface Antigen Nonreactive (Nonreactive) Hepatitis B Core IgM Antibody Nonreactive (Nonreactive) Hepatitis C IgG Antibody Nonreactive (Nonreactive) Urine Collection Type Unknown Urine Color Yellow Urine Clarity Clear Urine pH 7.5 (<5.0-8.0) Urine Specific [place] <=1.005 (1.000-1.030) Urine Protein Negative mg/dL (NEG-TRACE) Urine Glucose (UA) Negative mg/dL (NEG) Urine Ketones (Stick) Negative mg/dL (NEG) Urine Blood Negative (NEG) Urine Nitrite Negative (NEG) Urine Bilirubin Negative (NEG) Urine Urobilinogen Dipstick 0.2 mg/dL (0.2 mg/dL) Urine Leukocyte Esterase Negative (NEG) Urine RBC 0 /HPF (0-2) Urine WBC Occ /HPF (0-4) Urine Bacteria 0 /HPF (0-FEW) Medications Current Medications Sodium Chloride 1,000 ml @ 1,000 mls/hr 1X ONCE IV Last administered on 06/05/19at 15:15; Start 06/05/19 at 14:15; Stop 06/05/19 at 15:14; Status DC Fentanyl Citrate (Fentanyl 2ml Vial) 50 mcg 1X ONCE IVP ; Start 06/05/19 at 14:15; Stop 06/05/19 at 14:29; Status DC Clindamycin Phosphate 50 ml @ 100 mls/hr 1X ONCE IV Last administered on 06/05/19at 15:15; Start 06/05/19 at 14:15; Stop 06/05/19 at 14:44; Status DC Iohexol (Omnipaque 300 Mg/ml) 75 ml 1X ONCE IV Last administered on 06/05/19at 15:01; Start 06/05/19 at 15:00; Stop 06/05/19 at 15:01; Status DC Info (CONTRAST GIVEN -- Rx MONITORING) 1 each PRN DAILY PRN MC SEE COMMENTS; Start 06/05/19 at 15:00; Stop 06/07/19 at 14:59 Morphine Sulfate (Morphine Sulfate) 4 mg PRN Q2HR PRN IV PRN PAIN; Start 06/05/19 at 16:00; Stop 06/06/19 at 15:59 Sodium Chloride 1,000 ml @ 75 mls/hr [id number] IV Last administered on 06/06/19at 07:56; Start 06/05/19 at 15:58; Stop 06/06/19 at 15:57 Piperacillin Sod/ Tazobactam Sod 3.375 gm/Sodium Chloride 50 ml @ 100 mls/hr Q6HRS IV Last administered on 06/06/19at 05:38; Start 06/05/19 at 18:00 Metronidazole 100 ml @ 100 mls/hr Q8HRS IV Last administered on 06/06/19at 06: 42; Start 06/05/19 at 18:30 Ketorolac Tromethamine (Toradol 30mg Vial) 30 mg PRN Q6HRS PRN IVP PAIN Last administered on 06/06/19at 01:41; Start 06/05/19 at 17:45; Stop 06/10/19 at 17:44 Ondansetron HCl (Zofran) 4 mg PRN Q4HRS PRN IV NAUSEA/VOMITING; Start 06/05/19 at 17:45 Acetaminophen (Tylenol) 650 mg PRN Q4HRS PRN PO TEMP OVER 100.4F OR MILD PAIN; Start 06/05/19 at 17:45 Docusate Sodium (Colace) 100 mg PRN BID PRN PO CONSTIPATION; Start 06/05/19 at 17:45 Lidocaine HCl (Viscous Lidocaine) 15 ml PRN Q4HRS PRN SWSW MOUTH PAIN; Start 06/05/19 at 17:45 Tramadol HCl (Ultram) 50 mg PRN Q6HRS PRN PO PAIN Last administered on 0at 07:56; Start 06/05/19 at 18:00 Vitals/I & O Vital Sign - Last 24 Hours 06/05/19 06/05/19 06/05/19 06/05/19 13:08 13:24 13:54 14:24 Temp 99.3 99.3 Pulse 92 94 91 93 Resp 17 17 22 B/P (MAP) 133/66 (88) 133/66 (88) 124/67 (86) 123/58 (79) Pulse Ox 97 96 96 94 O2 Delivery Room Air Room Air Room Air Room Air 06/05/19 06/05/19 06/05/19 06/05/19 14:54 15:16 15:46 16:16 Pulse 85 86 86 82 Resp 17 15 B/P (MAP) 118/68 (85) 118/57 (77) 107/60 (76) 111/61 (78) Pulse Ox 96 97 97 97 O2 Delivery Room Air Room Air Room Air Room Air 06/05/19 06/05/19 06/05/19 06/05/19 16:46 17:50 18:00 19:30 Temp 98.1 98.6 98.1 98.6 Pulse 85 89 99 Resp 16 16 18 B/P (MAP) 118/62 (80) 129/75 (93) 115/45 (68) Pulse Ox 97 98 97 O2 Delivery Room Air Room Air Room Air Room Air 06/05/19 06/05/19 06/05/19 06/06/19 19:50 23:22 23:25 03:50 Temp 98.5 98.1 98.5 98.1 Pulse 73 60 Resp 18 18 18 B/P (MAP) 120/50 (73) 112/70 (84) Pulse Ox 95 98 O2 Delivery Room Air Room Air Room Air Room Air O2 Flow Rate 97.0 06/06/19 06/06/19 07:00 07:56 Temp 98.2 98.2 Pulse 64 Resp 18 18 B/P (MAP) 108/ Pulse Ox 95 O2 Delivery Room Air Room Air Intake and Output 06/05/19 06/05/19 06/06/19 15:00 23:00 07:00 Intake Total 1450 ml 340 ml Balance 1450 ml 340 ml ADRIAN ORELLANA MD Jun 06, 2019 08:18
[2019-06-06] MEDS ORDERED: CHLORHEXIDINE 0.12% 15 ML MOUTHWASH. ONE (09:40)
[2019-06-06] MEDS ORDERED: CHLORHEXIDINE 0.12% 15 ML MOUTHWASH. SWSP ONE (10:00)
[2019-06-06] MEDS ORDERED: BACITRACIN 50,000 UNIT in IV NORMAL SALINE 500ML BAG 500 ML IRR ONE (10:00)
[2019-06-06] MEDS ORDERED: GELATIN SPONGE SIZE 100. ONE (10:51)
[2019-06-06] MEDS ORDERED: BUPIVACAINE-EPI 0.5%-1:200000 MPF 30 ML VIAL. ONE (10:51)
[2019-06-06 11:00] VITALS: BP 119/66
[2019-06-06] MEDS ORDERED: IV RINGERS,LACTATED 1000ML 1,000 ML IV SCH (13:24)
[2019-06-06] MEDS ORDERED: fentaNYL PF VIAL 100 MCG/2 ML VIAL IV PRN ×2 (13:30)
[2019-06-06] MEDS ORDERED: PROCHLORPERAZINE 10 MG/2 ML VIAL. IV PRN (13:30)
[2019-06-06] MEDS ORDERED: MORPHINE SULFATE 2 MG/ML VIAL. IV PRN (13:30)
[2019-06-06] MEDS ORDERED: ONDANSETRON PF 4 MG/2 ML VIAL. IV PRN (13:30)
[2019-06-06] MEDS ORDERED: HYDROmorphone 2 MG/ML VIAL IV PRN (13:30)
[2019-06-06] MEDS ORDERED: ROCURONIUM 50 MG/5 ML VIAL. ONE (13:59)
[2019-06-06] MEDS ORDERED: GELATIN SPONGE SIZE 12-7MM SPONGE. ONE (14:50)
[2019-06-06] MEDS ORDERED: PROPOFOL 20 ML IV ONE (15:10)
[2019-06-06] MEDS ORDERED: ONDANSETRON PF 4 MG/2 ML VIAL. ONE (15:10)
[2019-06-06] MEDS ORDERED: DEXAMETHASONE SOD PHOS 4 MG/ML VIAL ONE (15:10)
[2019-06-06] MEDS ORDERED: LIDOCAINE 2% PF 5 ML VIAL. ONE (15:10)
[2019-06-06] MEDS ORDERED: SEVOFLURANE 61 TO 120 MINUTES. IH ONE (15:29)
[2019-06-06] MEDS ORDERED: NEOSTIGMINE METHYLSULFATE 5 MG/5 ML SYRINGE. ONE (15:30)
[2019-06-06] MEDS ORDERED: GLYCOPYRROLATE 1 MG/5 ML VIAL. ONE (15:30)
--- NOTE | 2019-06-06 15:52 | PDOC4 ---
OPERATIVE NOTE Date: Date: Jun 06, 2019 Pre-Op Diagnosis: caries, non restorable 1,2, 18 odontogenic abscess upper right maxilla odontogenic abscess lower right mandible Post-Op Diagnosis: caries, non restorable 1,2, 18 odontogenic abscess upper right maxilla odontogenic abscess lower right mandible Procedure Performed: Sx extraction of caries, non restorable 1,2, 18 I&D of odontogenic abscess upper right maxilla & I&D of odontogenic abscess lower right mandible with drain placement Surgeon: violetta Anesthesia Type: Jaervin Blood Loss: 30 Specimans Obtained: teeth and necrotic bone disposed of in OR Findings: see dictation Complications: none Operative Note: see dictation ROSANGELA SPEARS DMD Jun 06, 2019 15:52
[2019-06-06] MEDS ORDERED: PROCHLORPERAZINE 10 MG/2 ML VIAL. ONE (15:53)
--- NOTE | 2019-06-06 16:03 | PDOC ---
SUBJECTIVE Subjective patient recovering in PACU Areas are stable, hemostatic, pain is controlled OBJECTIVE Objective SANTOSH > 40mm, FOM supple, Teeth # 1, 2, 18 are removed and I&D has been performed in upper right maxilla and lower left mandible Abscess located above the inferior boarder of the mandible Sutures are in place Vital Signs Vital Signs Date Time Temp Pulse Resp B/P (MAP) Pulse Ox O2 Delivery O2 Flow Rate FiO2 06/06/19 13:20 97.9 62 15 133/68 97 Room Air 97.9 06/06/19 11:00 97.9 68 16 119/66 (83) 97 Room Air 97.9 06/06/19 08:56 16 Room Air 06/06/19 07:56 18 Room Air 06/06/19 07:00 98.2 64 18 108/ 95 Room Air 98.2 06/06/19 03:50 98.1 60 18 112/70 (84) 98 Room Air 98.1 06/05/19 23:25 18 Room Air 06/05/19 23:22 98.5 73 18 120/50 (73) 95 Room Air 98.5 06/05/19 19:50 Room Air 97.0 06/05/19 19:30 98.6 99 18 115/45 (68) 97 Room Air 98.6 06/05/19 18:00 Room Air 06/05/19 17:50 98.1 89 16 129/75 (93) 98 Room Air 98.1 06/05/19 16:46 85 16 118/62 (80) 97 Room Air 06/05/19 16:16 82 15 111/61 (78) 97 Room Air I & O Intake and Output 06/06/19 07:00 Intake Total 1790 ml Balance 1790 ml Intake Oral 540 ml IV Total 1250 ml PHYSICAL EXAM Physical Exam SANTOSH > 40mm, FOM supple, Teeth # 1, 2, 18 are removed and I&D has been performed in upper right maxilla and lower left mandible Abscess located above the inferior boarder of the mandible Sutures are in place ASSESSMENT/PLAN Assessment/Plan 23 yom s/p Extractions of # 1,2,18 and I&D Surgical treatment has been concluded Patient can stay overnight for pain management and be discharged safely back to the facility tomorrow AM (Sunday06.07.19) PO ABX and PO Analgesics in facility Please contact me with any questions. COMMENT Lab Laboratory Tests Test 06/06/19 04:48 White Blood Count 6.4 x10^3/uL (4.0-11.0) Red Blood Count 3.91 x10^6/uL (4.30-5.70) Hemoglobin 12.0 g/dL (13.0-17.5) Hematocrit 35.5 % (39.0-53.0) Mean Corpuscular Volume 91 fL (79-100) Mean Corpuscular Hemoglobin 31 pg (25-35) Mean Corpuscular Hemoglobin Concent 34 g/dL (31-37) Red Cell Distribution Width 14.3 % (11.5-14.5) Platelet Count 176 x10^3/uL (140-400) Neutrophils (%) (Auto) 69 % (31-73) Lymphocytes (%) (Auto) 17 % (24-48) Monocytes (%) (Auto) 9 % (0-9) Eosinophils (%) (Auto) 4 % (0-3) Basophils (%) (Auto) 0 % (0-3) Neutrophils # (Auto) 4.4 x10^3/uL (1.8-7.7) Lymphocytes # (Auto) 1.1 x10^3/uL (1.0-4.8) Monocytes # (Auto) 0.6 x10^3/uL (0.0-1.1) Eosinophils # (Auto) 0.3 x10^3/uL (0.0-0.7) Basophils # (Auto) 0.0 x10^3/uL (0.0-0.2) Sodium Level 145 mmol/L (136-145) Potassium Level 3.7 mmol/L (3.5-5.1) Chloride Level 110 mmol/L (98-107) Carbon Dioxide Level 24 mmol/L (21-32) Anion Gap 11 (6-14) Blood Urea Nitrogen 9 mg/dL (8-26) Creatinine 1.0 mg/dL (0.7-1.3) Estimated GFR (Cockcroft-Gault) 91.0 BUN/Creatinine Ratio 9 (6-20) Glucose Level 95 mg/dL (70-99) Calcium Level 7.8 mg/dL (8.5-10.1) Total Bilirubin 1.0 mg/dL (0.2-1.0) Aspartate Amino Transf (AST/SGOT) 100 U/L (15-37) Alanine Aminotransferase (ALT/SGPT) 287 U/L (16-63) Alkaline Phosphatase 99 U/L (46-116) Total Protein 6.2 g/dL (6.4-8.2) Albumin 3.0 g/dL (3.4-5.0) Albumin/Globulin Ratio 0.9 (1.0-1.7) ROSANGELA SPEARS DMD Jun 06, 2019 16:02
--- NOTE | 2019-06-06 18:21 | OP ---
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 ATTENDING PHYSICIAN: Kaden Spears DMD. PREOPERATIVE DIAGNOSES: 1. Odontogenic infection, upper right associated with teeth #1 and #2. 2. Odontogenic infection, lower left mandible associated with tooth #18. POSTOPERATIVE DIAGNOSES: 1. Odontogenic infection, upper right associated with teeth #1 and #2. 2. Odontogenic infection, lower left mandible associated with tooth #18. PROCEDURES PERFORMED: Incision and drainage of odontogenic infection of the upper right maxilla and the lower left mandible, intraoral approach for both complicated on the lower left mandible. Also, extraction of nonrestorable teeth #1, #2 and #18. BRIEF HISTORY: The patient is a 23-year-old male who is an inmate at [facility]. He had noted that he has had pain and symptoms for some time with these teeth which is getting worse where he was referred to the [facility]. He was concerned for instability and was referred to us for management of these nonrestorable teeth. Considering his instability and pain and infection, we escalated the setting of his care to the OR and he was transferred to the [facility] for admission and management. History and physical was performed and permit was obtained. ESTIMATED BLOOD LOSS: Approximately 30 mL. SPECIMEN SENT: No specimens were sent. Teeth were disposed off in the OR as well as necrotic bone. DRAINS PLACED: One drain was placed in the lower left with 3-0 chromic gut suture. OPERATIVE DESCRIPTION: After the history and physical was updated in the preoperative holding area, the patient was transported by the Anesthesia Service to the operating suite, placed in the supine position. General anesthesia was induced and the patient was intubated with oral intubation, which was secured to the upper left face without complication. Timeout was initiated. All surgical staff was in agreeance. The moistened throat pack was placed. Local anesthesia in the form of 0.5% Marcaine, 1:200,000 epinephrine, approximately 24 mL were administered into the proposed surgical areas. A 15 blade was brought to the field. Full thickness mucoperiosteal flaps were reflected at 1, 2 and 18. Additionally, vestibular stab incisions approximately 1.5 cm long were made in the depth of the vestibule at site #1, #2 and lower left at site #17 and #18. Blunt dissection and subperiosteal dissection was performed in the upper right maxilla and in the lower left mandible. There was copious purulent drainage from the lower left mandible. There was tissue breakdown in the buccal vestibule of the lower left mandible. Copious normal sterile saline was utilized to lavage the areas. Teeth #1, #2 and #18 were luxated, elevated and extracted with hand instruments. Necrotic bone was debrided at sites #1, #2 and #18. The necrotic bone was debrided back to bleeding bone. At site #2, the follicle around the periapical granulomatous tissue was debrided. There was possible oroantral communication. Suction and copious lavage was performed in this area. Gelfoam was packed in the upper right sites and oversewn with 3-0 chromic gut sutures in a running locked fashion. Attention was directed to site #18 where the debridement was performed back to bleeding bone with extensive vestibular incision and subperiosteal dissection and copious normal sterile saline irrigation. The site was packed with Gelfoam and also oversewn with multiple 3-0 chromic gut sutures and the tissue was stabilized and was found to be hemostatic and vascularized following the drainage and placement of drain. This concluded the procedure. Oral cavity was then lavaged. The oral cavity was suctioned and the moistened throat pack was removed. An OG was then passed and the stomach was decompressed. The patient was then returned to the care of Anesthesia, where he was awakened and extubated and transported to the PACU in stable condition. KADEN SPEARS DMD DR: Jose JOB#: [id number] / [id number]
[2019-06-06 19:36] VITALS: BP 124/69
[2019-06-06 23:30] VITALS: BP 123/69
[2019-06-07 03:00] VITALS: BP 108/55
[2019-06-07] MEDS: PIPERACILLIN/TAZOBACTAM 3.375 GM in IV NORMAL SALINE 50ML 50 ML IV SCH ×3 (06:17→18:36)
[2019-06-07] MEDS: traMADol 50 MG TABLET PO PRN (06:19)
[2019-06-07 07:00] VITALS: BP 114/56
--- NOTE | 2019-06-07 09:54 | PDOC ---
PROGRESS NOTES Chief Complaint Chief Complaint A/P: Right maxillary odontogenic infection - dental caries with concomitant sinusitis in maxilla. Maxillofacial surgery consulted. Empiric antibiotics Left mandibular odontogenic infection - dental caries with jaw infection as well. Same. Pain control Sepsis - likely 2/2 right maxillary sinus infection due to dental infection. Surgery consulted. Antibiotics given, fluids administered. Acute transaminitis - RUQ normal, negative hepatitis panel, TSH is WNL. He denies IVDA, but his long term guards note he has been near "[employer]" while incarcerated Smoker - counseled on cessation. FEN - NPO after midnight PPX - SCDs FULL CODE Dispo - inpatient for maxillary tooth infection invading right maxillary sinus History of Present Illness History of Present Illness Mr He is a 23yo male incarcerated since 2017 with no PMHx who presents from correctional facility c/o feeling feverish and states his head is melting. Referred from the physician at [facility] and Dr. Moyer for tachycardia and fever on 06/04/2019 in the evening with facial swelling. Was given rocephin and flagyl in [facility] and continued to have pain in his jaw, face, head. In ED ta chycardic, afebrile, but WBC 12.4 with left shift. K 3.5, bili 1.2, AST 240, ALT 431 No Abdominal pain, just feels strange and like his head is melting. Pain 7/10. He denies any IVDA or recent sick contacts. No nausea or vomiting or abdominal pain. Denies CP or SOB. CT maxillofacial reveals lucency surrounding the first right maxillary molar with cortical breakthrough into the right maxillary sinus. There is mucosal thickening in the right maxillary sinus. Periapical lucency surrounding the first left mandibular molar with cortical breakthrough along the buccal surface of the mandibular cortex. Mild surrounding soft tissue thickening/inflammation without focal fluid collections suggest abscess. Oral surgeon called, started on IV antibiotics and admitted for further treatment and care 06/06 Afebrile. Pain controlled. LFTs improved. Hepatitis panel and thyroid function tests normal. No CP or SOB . Procedure Performed: Sx extraction of caries, non restorable 1,2, 18 I&D of odontogenic abscess upper right maxilla & I&D of odontogenic abscess lower right mandible with drain placement Surgeon: violetta Anesthesia Type: Jaax Blood Loss: 30 Specimans Obtained: teeth and necrotic bone disposed of in OR Vitals Vitals Vital Signs Date Time Temp Pulse Resp B/P (MAP) Pulse Ox O2 Delivery O2 Flow Rate FiO2 06/07/19 07:20 19 94 Room Air 06/07/19 07:00 98.2 65 114/56 (75) 98.2 06/06/19 15:42 10 Physical Exam General: Alert, Oriented X3, Cooperative, mild distress Heart: Regular rate, Normal S1, Normal S2 Lungs: Clear Abdomen: Normal bowel sounds, Soft, No tenderness, No hepatosplenomegaly, No masses Extremities: No clubbing, No cyanosis, No edema, Normal pulses, No tenderness/swelling Skin: No rashes, No breakdown, No significant lesion Labs LABS PATIENT: JACKIE HE ACCOUNT: [id number] : 1995 LOCATION: ER AGE: 23 SEX: M EXAM STATUS: REG ER ORD. PHYSICIAN: SLIME MARQUEZ MD REASON: eval for dental abscess right jaw PROCEDURE: CT MAXILLOFACIAL W/CONTRAST Exam: CT maxillofacial with contrast INDICATION: Evaluate for dental abscess, right jaw TECHNIQUE: Sequential axial images through the maxillofacial obtained following the administration of 75 mL of Omni 300 IV contrast. Sagittal and coronal reformatted images were reconstructed from the axial data and reviewed. Comparisons: None FINDINGS: Visualized intracranial structures are unremarkable. Mucosal thickening is noted within the right maxillary sinus. Globes and intraorbital contents are normal. Periapical lucency surrounding the first left mandibular molar with cortical breakthrough along the buccal surface of the mandibular cortex. No focal fluid collection is identified. There is soft tissue edema overlying the cortical surface of the left mandible at the area of periapical lucency. Periapical lucency surrounding the right first maxillary molar with cortical breakthrough into the maxillary sinus. No acute fracture. IMPRESSION: 1. Periapical lucency surrounding the first right maxillary molar with cortical breakthrough into the right maxillary sinus. There is mucosal thickening in the right maxillary sinus. 2. Periapical lucency surrounding the first left mandibular molar with cortical breakthrough along the buccal surface of the mandibular cortex. Mild surrounding soft tissue thickening/inflammation without focal fluid collections suggest abscess. Exposure: One or more of the following in the visualized dose reduction techniques were utilized for this examination: 1. Automated exposure control 2. Adjustment of the MA and/or KV according to patient size 3. Use of iterative of reconstructive technique Electronically signed by: Salvador Jimenez MD (06/05/2019 3:36 PM) [id number] Assessment and Plan Assessmemt and Plan Problems Medical Problems: (1) Odontogenic infection of jaw Status: Acute Comment Review of Relevant I have reviewed the following items candice (where applicable) has been applied. Labs Laboratory Tests Test 06/05/19 13:40 06/05/19 15:20 06/06/19 04:48 White Blood Count 12.4 x10^3/uL (4.0-11.0) 6.4 x10^3/uL (4.0-11.0) Red Blood Count 4.45 x10^6/uL (4.30-5.70) 3.91 x10^6/uL (4.30-5.70) Hemoglobin 13.4 g/dL (13.0-17.5) 12.0 g/dL (13.0-17.5) Hematocrit 40.0 % (39.0-53.0) 35.5 % (39.0-53.0) Mean Corpuscular Volume 90 fL (79-100) 91 fL (79-100) Mean Corpuscular Hemoglobin 30 pg (25-35) 31 pg (25-35) Mean Corpuscular Hemoglobin Concent 34 g/dL (31-37) 34 g/dL (31-37) Red Cell Distribution Width 14.2 % (11.5-14.5) 14.3 % (11.5-14.5) Platelet Count 217 x10^3/uL (140-400) 176 x10^3/uL (140-400) Neutrophils (%) (Auto) 92 % (31-73) 69 % (31-73) Lymphocytes (%) (Auto) 2 % (24-48) 17 % (24-48) Monocytes (%) (Auto) 6 % (0-9) 9 % (0-9) Eosinophils (%) (Auto) 0 % (0-3) 4 % (0-3) Basophils (%) (Auto) 0 % (0-3) 0 % (0-3) Neutrophils # (Auto) 11.4 x10^3/uL (1.8-7.7) 4.4 x10^3/uL (1.8-7.7) Lymphocytes # (Auto) 0.2 x10^3/uL (1.0-4.8) 1.1 x10^3/uL (1.0-4.8) Monocytes # (Auto) 0.7 x10^3/uL (0.0-1.1) 0.6 x10^3/uL (0.0-1.1) Eosinophils # (Auto) 0.0 x10^3/uL (0.0-0.7) 0.3 x10^3/uL (0.0-0.7) Basophils # (Auto) 0.0 x10^3/uL (0.0-0.2) 0.0 x10^3/uL (0.0-0.2) Segmented Neutrophils % 80 % (35-66) Band Neutrophils % 13 % (0-9) Lymphocytes % 1 % (24-48) Monocytes % 5 % (0-10) Eosinophils % 1 % (0-5) Platelet Estimate Adequate (ADEQUATE) Erythrocyte Sedimentation Rate 10 (0-15) Sodium Level 139 mmol/L (136-145) 145 mmol/L (136-145) Potassium Level 3.5 mmol/L (3.5-5.1) 3.7 mmol/L (3.5-5.1) Chloride Level 103 mmol/L (98-107) 110 mmol/L (98-107) Carbon Dioxide Level 25 mmol/L (21-32) 24 mmol/L (21-32) Anion Gap 11 (6-14) 11 (6-14) Blood Urea Nitrogen 8 mg/dL (8-26) 9 mg/dL (8-26) Creatinine 1.0 mg/dL (0.7-1.3) 1.0 mg/dL (0.7-1.3) Estimated GFR (Cockcroft-Gault) 91.0 91.0 BUN/Creatinine Ratio 8 (6-20) 9 (6-20) Glucose Level 119 mg/dL (70-99) 95 mg/dL (70-99) Lactic Acid Level 1.4 mmol/L (0.4-2.0) Calcium Level 8.3 mg/dL (8.5-10.1) 7.8 mg/dL (8.5-10.1) Total Bilirubin 1.2 mg/dL (0.2-1.0) 1.0 mg/dL (0.2-1.0) Aspartate Amino Transf (AST/SGOT) 240 U/L (15-37) 100 U/L (15-37) Alanine Aminotransferase (ALT/SGPT) 431 U/L (16-63) 287 U/L (16-63) Alkaline Phosphatase 113 U/L (46-116) 99 U/L (46-116) C-Reactive Protein, Quantitative 65.8 mg/L (0-3.3) Total Protein 7.3 g/dL (6.4-8.2) 6.2 g/dL (6.4-8.2) Albumin 3.6 g/dL (3.4-5.0) 3.0 g/dL (3.4-5.0) Albumin/Globulin Ratio 1.0 (1.0-1.7) 0.9 (1.0-1.7) Thyroid Stimulating Hormone (TSH) 0.434 uIU/mL (0.358-3.74) Hepatitis A IgM Antibody Nonreactive (Nonreactive) Hepatitis B Surface Antigen Nonreactive (Nonreactive) Hepatitis B Core IgM Antibody Nonreactive (Nonreactive) Hepatitis C IgG Antibody Nonreactive (Nonreactive) Urine Collection Type Unknown Urine Color Yellow Urine Clarity Clear Urine pH 7.5 (<5.0-8.0) Urine Specific [place] <=1.005 (1.000-1.030) Urine Protein Negative mg/dL (NEG-TRACE) Urine Glucose (UA) Negative mg/dL (NEG) Urine Ketones (Stick) Negative mg/dL (NEG) Urine Blood Negative (NEG) Urine Nitrite Negative (NEG) Urine Bilirubin Negative (NEG) Urine Urobilinogen Dipstick 0.2 mg/dL (0.2 mg/dL) Urine Leukocyte Esterase Negative (NEG) Urine RBC 0 /HPF (0-2) Urine WBC Occ /HPF (0-4) Urine Bacteria 0 /HPF (0-FEW) Microbiology 06/05/19 Blood Culture - Preliminary, Resulted NO GROWTH AFTER 1 DAY Medications Current Medications Sodium Chloride 1,000 ml @ 1,000 mls/hr 1X ONCE IV Last administered on 06/05/19at 15:15; Start 06/05/19 at 14:15; Stop 06/05/19 at 15:14; Status DC Fentanyl Citrate (Fentanyl 2ml Vial) 50 mcg 1X ONCE IVP ; Start 06/05/19 at 14:15; Stop 06/05/19 at 14:29; Status DC Clindamycin Phosphate 50 ml @ 100 mls/hr 1X ONCE IV Last administered on 06/05/19at 15:15; Start 06/05/19 at 14:15; Stop 06/05/19 at 14:44; Status DC Iohexol (Omnipaque 300 Mg/ml) 75 ml 1X ONCE IV Last administered on 06/05/19at 15:01; Start 06/05/19 at 15:00; Stop 06/05/19 at 15:01; Status DC Info (CONTRAST GIVEN -- Rx MONITORING) 1 each PRN DAILY PRN MC SEE COMMENTS; Start 06/05/19 at 15:00; Stop 06/07/19 at 14:59 Morphine Sulfate (Morphine Sulfate) 4 mg PRN Q2HR PRN IV PRN PAIN; Start 06/05/19 at 16:00; Stop 06/06/19 at 15:59; Status DC Sodium Chloride 1,000 ml @ 75 mls/hr [id number] IV Last administered on 06/06/19at 07:56; Start 06/05/19 at 15:58; Stop 06/06/19 at 15:57; Status DC Piperacillin Sod/ Tazobactam Sod 3.375 gm/Sodium Chloride 50 ml @ 100 mls/hr Q6HRS IV Last administered on 06/07/19at 06:17; Start 06/05/19 at 18:00 Metronidazole 100 ml @ 100 mls/hr Q8HRS IV Last administered on 06/07/19at 06:17; Start 06/05/19 at 18:30 Ketorolac Tromethamine (Toradol 30mg Vial) 30 mg PRN Q6HRS PRN IVP PAIN Last administered on 06/06/19at 23:35; Start 06/05/19 at 17:45; Stop 06/10/19 at 17:44 Ondansetron HCl (Zofran) 4 mg PRN Q4HRS PRN IV NAUSEA/VOMITING; Start 06/05/19 at 17:45 Acetaminophen (Tylenol) 650 mg PRN Q4HRS PRN PO TEMP OVER 100.4F OR MILD PAIN; Start 06/05/19 at 17:45 Docusate Sodium (Colace) 100 mg PRN BID PRN PO CONSTIPATION; Start 06/05/19 at 17:45 Lidocaine HCl (Viscous Lidocaine) 15 ml PRN Q4HRS PRN SWSW MOUTH PAIN; Start 06/05/19 at 17:45 Tramadol HCl (Ultram) 50 mg PRN Q6HRS PRN PO MODERATE - SEVERE PAIN Last administered on 06/07/19at 06:19; Start 06/05/19 at 18:00 Chlorhexidine Gluconate (Peridex) 15 ml STK-MED ONCE .ROUTE ; Start 06/06/19 at 09:40; Stop 06/06/19 at 09:40; Status DC Chlorhexidine Gluconate (Peridex) 15 ml 1X ONCE SWSP Last administered on 06/06/19at 14:43; Start 06/06/19 at 10:00; Stop 06/06/19 at 10:01; Status DC Bacitracin 84839 unit/Sodium Chloride 500 ml @ 500 mls/hr 1X ONCE IRR Last administered on 06/06/19at 14:43; Start 06/06/19 at 10:00; Stop 06/06/19 at 10:59; Status DC Gelatin (Gelfoam Size 100) 1 each STK-MED ONCE .ROUTE ; Start 06/06/19 at 10:51; Stop 06/06/19 at 10:51; Status DC Bupivacaine HCl/ Epinephrine Bitart (Sensorcain-Epi 0.5%-1:360498 Mpf) 30 ml STK-MED ONCE .ROUTE Last administered on 06/06/19at 14:43; Start 06/06/19 at 10:51; Stop 06/06/19 at 10:51; Status DC Ondansetron HCl (Zofran) 4 mg PRN Q6HRS PRN IV NAUSEA/VOMITING; Start 06/06/19 at 13:30; Stop 06/07/19 at 13:29 Fentanyl Citrate (Fentanyl 2ml Vial) 25 mcg PRN Q5MIN PRN IV MILD PAIN 1-3; Start 06/06/19 at 13:30; Stop 06/07/19 at 13:29 Fentanyl Citrate (Fentanyl 2ml Vial) 50 mcg PRN Q5MIN PRN IV MODERATE TO SEVERE PAIN; Start 06/06/19 at 13:30; Stop 06/07/19 at 13:29 Morphine Sulfate (Morphine Sulfate) 1 mg PRN Q10MIN PRN IV SEVERE PAIN 7-10; Start 06/06/19 at 13:30; Stop 06/07/19 at 13:29 Ringer's Solution 1,000 ml @ 30 mls/hr Q24H IV ; Start 06/06/19 at 13:24; Stop 06/06/19 at 16:36; Status DC Hydromorphone HCl (Dilaudid) 0.5 mg PRN Q10MIN PRN IV SEV PAIN, Second choice; Start 06/06/19 at 13:30; Stop 06/07/19 at 13:29 Prochlorperazine Edisylate (Compazine) 5 mg PACU PRN PRN IV NAUSEA, MRX1 Last administered on 06/06/19at 16:00; Start 06/06/19 at 13:30; Stop 06/07/19 at 13:29 Rocuronium [place] (Zemuron) 50 mg STK-MED ONCE .ROUTE ; Start 06/06/19 at 13:59; Stop 06/06/19 at 14:00; Status DC Gelatin (Gelfoam Size 12-7mm) 1 each STK-MED ONCE .ROUTE Last administered on 06/06/19at 14:55; Start 06/06/19 at 14:50; Stop 06/06/19 at 14:50; Status DC Propofol 20 ml @ As Directed STK-MED ONCE IV ; Start 06/06/19 at 15:10; Stop 06/06/19 at 15:10; Status DC Lidocaine HCl (Lidocaine Pf 2% Vial) 5 ml STK-MED ONCE .ROUTE ; Start 06/06/19 at 15:10; Stop 06/06/19 at 15:10; Status DC Ondansetron HCl (Zofran) 4 mg STK-MED ONCE .ROUTE ; Start 06/06/19 at 15:10; Stop 06/06/19 at 15:10; Status DC Dexamethasone Sodium Phosphate (Decadron) 4 mg STK-MED ONCE .ROUTE ; Start 06/06/19 at 15:10; Stop 06/06/19 at 15:10; Status DC Sevoflurane (Ultane) 60 ml STK-MED ONCE IH ; Start 06/06/19 at 15:29; Stop 06/06/19 at 15:30; Status DC Neostigmine [place] (Neostigmine Methylsulfate) 5 mg STK-MED ONCE .ROUTE ; Start 06/06/19 at 15:30; Stop 06/06/19 at 15:30; Status DC Glycopyrrolate (Robinul) 1 mg STK-MED ONCE .ROUTE ; Start 06/06/19 at 15:30; Stop 06/06/19 at 15:30; Status DC Prochlorperazine Edisylate (Compazine) 10 mg STK-MED ONCE .ROUTE ; Start 06/06/19 at 15:53; Stop 06/06/19 at 15:53; Status DC Vitals/I & O Vital Sign - Last 24 Hours 06/06/19 06/06/19 06/06/19 06/06/19 11:00 13:20 15:42 15:42 Temp 97.9 97.9 97.2 97.9 97.9 97.2 Pulse 68 62 56 Resp 16 15 16 B/P (MAP) 119/66 (83) 133/68 153/84 Pulse Ox 97 97 100 O2 Delivery Room Air Room Air Simple Mask Mask O2 Flow Rate 10 10 06/06/19 06/06/19 06/06/19 06/06/19 16:00 16:15 16:30 16:45 Temp 97.2 97.2 97.2 97.2 97.2 97.2 97.2 97.2 Pulse 76 76 62 89 Resp 16 16 16 16 B/P (MAP) 146/80 132/72 131/76 142/82 Pulse Ox 97 97 96 97 O2 Delivery Room Air Room Air Room Air Room Air 06/06/19 06/06/19 06/06/19 06/07/19 19:36 20:00 23:30 03:00 Temp 97.9 98.5 98.1 97.9 98.5 98.1 Pulse 60 65 76 Resp 16 16 18 B/P (MAP) 124/69 (87) 123/69 (87) 108/55 (72) Pulse Ox 97 97 97 O2 Delivery Room Air Room Air Room Air Room Air 06/07/19 06/07/19 06/07/19 06:19 07:00 07:20 Temp 98.2 98.2 Pulse 65 Resp 20 18 19 B/P (MAP) 114/56 (75) Pulse Ox 97 94 94 O2 Delivery Room Air Room Air Room Air Intake and Output 06/06/19 06/06/19 06/07/19 15:00 23:00 07:00 Intake Total 240 ml Output Total 30 ml Balance -30 ml 240 ml ANGELA CHENG MD Jun 07, 2019 09:54
[2019-06-07 11:00] VITALS: BP 109/57
[2019-06-07 15:00] VITALS: BP 116/58
[2019-06-07 19:00] VITALS: BP 117/68
[2019-06-07] MEDS: LACTOBACILLUS RHAMNOSUS GG 1 CAPSULE. PO SCH (21:16)
[2019-06-07 22:59] VITALS: BP 116/49
[2019-06-08] MEDS: PIPERACILLIN/TAZOBACTAM 3.375 GM in IV NORMAL SALINE 50ML 50 ML IV SCH ×4 (00:06→19:13)
[2019-06-08] MEDS: traMADol 50 MG TABLET PO PRN ×2 (03:21→15:14)
[2019-06-08 03:23] VITALS: BP 128/73
[2019-06-08 07:59] VITALS: BP 123/58
[2019-06-08] MEDS: LACTOBACILLUS RHAMNOSUS GG 1 CAPSULE. PO SCH ×2 (08:19→21:17)
[2019-06-08 11:59] VITALS: BP 116/75
--- NOTE | 2019-06-08 12:32 | PDOC ---
PROGRESS NOTES Chief Complaint Chief Complaint impression Right maxillary odontogenic infection - dental caries with concomitant sinusitis in maxilla. Maxillofacial surgery consulted. Empiric antibiotics Left mandibular odontogenic infection - dental caries with jaw infection as well. Same. Pain control Sepsis - likely 2/2 right maxillary sinus infection due to dental infection. Surgery consulted. Antibiotics given, fluids administered. Acute transaminitis - RUQ normal, negative hepatitis panel, TSH is WNL. He denies IVDA, but his jail guards note he has been near "[employer]" while incarcerated Smoker - counseled on cessation. FEN - NPO after midnight PPX - SCDs FULL CODE Dispo - inpatient for maxillary tooth infection invading right maxillary sinus 06/07 pain slow to resolve History of Present Illness History of Present Illness Mr Mars is a 23yo male incarcerated since 2016 with no PMHx who presents from correctional facility c/o feeling feverish and states his head is melting. Referred from the physician at [facility] and Dr. Moyer for tachycardia and fever on 06/04/2019 in the evening with facial swelling. Was given rocephin and flagyl in [facility] and continued to have pain in his jaw, face, head. In ED tachycardic, afebrile, but WBC 12.4 with left shift. K 3.5, bili 1.2, AST 240, ALT 431 No Abdominal pain, just feels strange and like his head is melting. Pain 7/10. He denies any IVDA or recent sick contacts. No nausea or vomiting or abdominal pain. Denies CP or SOB. CT maxillofacial reveals lucency surrounding the first right maxillary molar with cortical breakthrough into the right maxillary sinus. There is mucosal thickening in the right maxillary sinus. Periapical lucency surrounding the first left mandibular molar with cortical breakthrough along the buccal surface of the mandibular cortex. Mild surrounding soft tissue thickening/inflammation without focal fluid collections suggest abscess. Oral surgeon called, started on IV antibiotics and admitted for further treatment and care 06/07 Afebrile. Pain controlled. LFTs improved. Hepatitis panel and thyroid function tests normal. No CP or SOB awake most of last night, so now is sleepy . Procedure Performed: Sx extraction of caries, non restorable 1,2, 18 I&D of odontogenic abscess upper right maxilla & I&D of odontogenic abscess lower right mandible with drain placement Surgeon: violetta Anesthesia Type: Jaax Blood Loss: 30 Specimans Obtained: teeth and necrotic bone disposed of in OR Vitals Vitals Vital Signs Date Time Temp Pulse Resp B/P (MAP) Pulse Ox O2 Delivery O2 Flow Rate FiO2 06/08/19 08:00 Room Air 06/08/19 07:59 98.2 58 18 123/58 (79) 94 98.2 Physical Exam General: Alert, Oriented X3, Cooperative, No acute distress, mild distress Heart: Regular rate, Normal S1, Normal S2 Lungs: Clear Abdomen: Normal bowel sounds, Soft, No tenderness, No hepatosplenomegaly, No masses Extremities: No clubbing, No cyanosis, No edema, Normal pulses, No tenderness/swelling Skin: No rashes, No breakdown, No significant lesion Assessment and Plan Assessmemt and Plan Problems Medical Problems: (1) Odontogenic infection of jaw Status: Acute Comment Review of Relevant I have reviewed the following items candice (where applicable) has been applied. Labs Microbiology 06/05/19 Blood Culture - Preliminary, Resulted NO GROWTH AFTER 2 DAYS Medications Current Medications Sodium Chloride 1,000 ml @ 1,000 mls/hr 1X ONCE IV Last administered on 06/05/19at 15:15; Start 06/05/19 at 14:15; Stop 06/05/19 at 15:14; Status DC Fentanyl Citrate (Fentanyl 2ml Vial) 50 mcg 1X ONCE IVP ; Start 06/05/19 at 14:15; Stop 06/05/19 at 14:29; Status DC Clindamycin Phosphate 50 ml @ 100 mls/hr 1X ONCE IV Last administered on 06/05/19at 15:15; Start 06/05/19 at 14:15; Stop 06/05/19 at 14:44; Status DC Iohexol (Omnipaque 300 Mg/ml) 75 ml 1X ONCE IV Last administered on 06/05/19at 15:01; Start 06/05/19 at 15:00; Stop 06/05/19 at 15:01; Status DC Info (CONTRAST GIVEN -- Rx MONITORING) 1 each PRN DAILY PRN MC SEE COMMENTS; Start 06/05/19 at 15:00; Stop 06/07/19 at 14:59; Status DC Morphine Sulfate (Morphine Sulfate) 4 mg PRN Q2HR PRN IV PRN PAIN; Start 06/05/19 at 16:00; Stop 06/06/19 at 15:59; Status DC Sodium Chloride 1,000 ml @ 75 mls/hr [id number] IV Last administered on 06/06/19at 07:56; Start 06/05/19 at 15:58; Stop 06/06/19 at 15:57; Status DC Piperacillin Sod/ Tazobactam Sod 3.375 gm/Sodium Chloride 50 ml @ 100 mls/hr Q6HRS IV Last administered on 06/08/19at 12:30; Start 06/05/19 at 18:00 Metronidazole 100 ml @ 100 mls/hr Q8HRS IV Last administered on 06/08/19at 05:58; Start 06/05/19 at 18:30 Ketorolac Tromethamine (Toradol 30mg Vial) 30 mg PRN Q6HRS PRN IVP PAIN Last administered on 06/06/19at 23:35; Start 06/05/19 at 17:45; Stop 06/10/19 at 17:44 Ondansetron HCl (Zofran) 4 mg PRN Q4HRS PRN IV NAUSEA/VOMITING; Start 06/05/19 at 17:45 Acetaminophen (Tylenol) 650 mg PRN Q4HRS PRN PO TEMP OVER 100.4F OR MILD PAIN; Start 06/05/19 at 17:45 Docusate Sodium (Colace) 100 mg PRN BID PRN PO CONSTIPATION; Start 06/05/19 at 17:45 Lidocaine HCl (Viscous Lidocaine) 15 ml PRN Q4HRS PRN SWSW MOUTH PAIN; Start 06/05/19 at 17:45 Tramadol HCl (Ultram) 50 mg PRN Q6HRS PRN PO MODERATE - SEVERE PAIN Last administered on 06/08/19at 03:21; Start 06/05/19 at 18:00 Chlorhexidine Gluconate (Peridex) 15 ml STK-MED ONCE .ROUTE ; Start 06/06/19 at 09:40; Stop 06/06/19 at 09:40; Status DC Chlorhexidine Gluconate (Peridex) 15 ml 1X ONCE SWSP Last administered on 06/06/19at 14:43; Start 06/06/19 at 10:00; Stop 06/06/19 at 10:01; Status DC Bacitracin 32204 unit/Sodium Chloride 500 ml @ 500 mls/hr 1X ONCE IRR Last administered on 06/06/19at 14:43; Start 06/06/19 at 10:00; Stop 06/06/19 at 10:59; Status DC Gelatin (Gelfoam Size 100) 1 each STK-MED ONCE .ROUTE ; Start 06/06/19 at 10:51; Stop 06/06/19 at 10:51; Status DC Bupivacaine HCl/ Epinephrine Bitart (Sensorcain-Epi 0.5%-1:369197 Mpf) 30 ml STK-MED ONCE .ROUTE Last administered on 06/06/19at 14:43; Start 06/06/19 at 10:51; Stop 06/06/19 at 10:51; Status DC Ondansetron HCl (Zofran) 4 mg PRN Q6HRS PRN IV NAUSEA/VOMITING; Start 06/06/19 at 13:30; Stop 06/07/19 at 13:29; Status DC Fentanyl Citrate (Fentanyl 2ml Vial) 25 mcg PRN Q5MIN PRN IV MILD PAIN 1-3; Start 06/06/19 at 13:30; Stop 06/07/19 at 13:29; Status DC Fentanyl Citrate (Fentanyl 2ml Vial) 50 mcg PRN Q5MIN PRN IV MODERATE TO SEVERE PAIN; Start 06/06/19 at 13:30; Stop 06/07/19 at 13:29; Status DC Morphine Sulfate (Morphine Sulfate) 1 mg PRN Q10MIN PRN IV SEVERE PAIN 7-10; Start 06/06/19 at 13:30; Stop 06/07/19 at 13:29; Status DC Ringer's Solution 1,000 ml @ 30 mls/hr Q24H IV ; Start 06/06/19 at 13:24; Stop 06/06/19 at 16:36; Status DC Hydromorphone HCl (Dilaudid) 0.5 mg PRN Q10MIN PRN IV SEV PAIN, Second choice; Start 06/06/19 at 13:30; Stop 06/07/19 at 13:29; Status DC Prochlorperazine Edisylate (Compazine) 5 mg PACU PRN PRN IV NAUSEA, MRX1 Last administered on 06/06/19at 16:00; Start 06/06/19 at 13:30; Stop 06/07/19 at 13:29; Status DC Rocuronium [place] (Zemuron) 50 mg STK-MED ONCE .ROUTE ; Start 06/06/19 at 13:59; Stop 06/06/19 at 14:00; Status DC Gelatin (Gelfoam Size 12-7mm) 1 each STK-MED ONCE .ROUTE Last administered on 06/06/19at 14:55; Start 06/06/19 at 14:50; Stop 06/06/19 at 14:50; Status DC Propofol 20 ml @ As Directed STK-MED ONCE IV ; Start 06/06/19 at 15:10; Stop 06/06/19 at 15:10; Status DC Lidocaine HCl (Lidocaine Pf 2% Vial) 5 ml STK-MED ONCE .ROUTE ; Start 06/06/19 at 15:10; Stop 06/06/19 at 15:10; Status DC Ondansetron HCl (Zofran) 4 mg STK-MED ONCE .ROUTE ; Start 06/06/19 at 15:10; Stop 06/06/19 at 15:10; Status DC Dexamethasone Sodium Phosphate (Decadron) 4 mg STK-MED ONCE .ROUTE ; Start 06/06/19 at 15:10; Stop 06/06/19 at 15:10; Status DC Sevoflurane (Ultane) 60 ml STK-MED ONCE IH ; Start 06/06/19 at 15:29; Stop 06/06/19 at 15:30; Status DC Neostigmine [place] (Neostigmine Methylsulfate) 5 mg STK-MED ONCE .ROUTE ; Start 06/06/19 at 15:30; Stop 06/06/19 at 15:30; Status DC Glycopyrrolate (Robinul) 1 mg STK-MED ONCE .ROUTE ; Start 06/06/19 at 15:30; Stop 06/06/19 at 15:30; Status DC Prochlorperazine Edisylate (Compazine) 10 mg STK-MED ONCE .ROUTE ; Start 06/06/19 at 15:53; Stop 06/06/19 at 15:53; Status DC Lactobacillus Rhamnosus (Culturelle) 1 cap BID PO Last administered on 06/08/19at 08:19; Start 06/07/19 at 21:00 Vitals/I & O Vital Sign - Last 24 Hours 06/07/19 06/07/19 06/07/19 06/07/19 15:00 19:00 20:00 22:59 Temp 97.7 97.5 97.7 97.7 97.5 97.7 Pulse 72 76 89 Resp 20 20 18 B/P (MAP) 116/58 (77) 117/68 (84) 116/49 (71) Pulse Ox 94 96 97 O2 Delivery Room Air Room Air Room Air Room Air 06/08/19 06/08/19 06/08/19 06/08/19 03:21 03:23 07:59 08:00 Temp 97.9 98.2 97.9 98.2 Pulse 67 58 Resp 18 B/P (MAP) 128/73 (91) 123/58 (79) Pulse Ox 97 96 94 O2 Delivery Room Air Room Air Room Air Room Air Intake and Output0 06/07/19 06/07/19 06/08/19 15:00 23:00 07:00 Intake Total 720 ml 540 ml Balance 720 ml 540 ml ANGELA CHENG MD Jun 08, 2019 12:32
[2019-06-08 15:59] VITALS: BP 112/58
[2019-06-08 19:00] VITALS: BP 133/83
[2019-06-08 23:00] VITALS: BP 115/64
[2019-06-09] MEDS: PIPERACILLIN/TAZOBACTAM 3.375 GM in IV NORMAL SALINE 50ML 50 ML IV SCH ×5 (00:04→23:15)
[2019-06-09] MEDS: traMADol 50 MG TABLET PO PRN ×3 (00:08→17:54)
[2019-06-09 03:00] VITALS: BP 113/76
[2019-06-09 04:50] LABS: BASO % 0 % (0-3); EOS # 0.1 x10^3/uL (0.0-0.7); EOS % 2 % (0-3); HEMOGLOBIN 13.8 g/dL (13.0-17.5); LYMPH # 2.5 x10^3/uL (1.0-4.8); LYMPH % 40 % (24-48); MEAN CORPUSCULAR HEMOGLOBIN 31 pg (25-35); MEAN CORPUSCULAR HGB CONC 34 g/dL (31-37); MEAN CORPUSCULAR VOLUME 91 fL (79-100); MONO # 0.4 x10^3/uL (0.0-1.1); MONO % 7 % (0-9); NEUT # 3.2 x10^3/uL (1.8-7.7); NEUT % 52 % (31-73); PLATELET COUNT 230 x10^3/uL (140-400); RED BLOOD COUNT 4.51 x10^6/uL (4.30-5.70); RED CELL DISTRIBUTION WIDTH 13.6 % (11.5-14.5); WHITE BLOOD COUNT 6.3 x10^3/uL (4.0-11.0)
[2019-06-09 04:56] LABS: ALBUMIN 3.5 g/dL (3.4-5.0); ALBUMIN/GLOBULIN RATIO 0.9 (1.0-1.7); CALCIUM 8.6 mg/dL (8.5-10.1); CREATININE 0.9 mg/dL (0.7-1.3); GFR 102.8; POTASSIUM 3.9 mmol/L (3.5-5.1); TOTAL BILIRUBIN 0.3 mg/dL (0.2-1.0); TOTAL PROTEIN 7.3 g/dL (6.4-8.2)
[2019-06-09 07:20] VITALS: BP 115/70
[2019-06-09] MEDS: LACTOBACILLUS RHAMNOSUS GG 1 CAPSULE. PO SCH ×2 (08:45→21:11)
--- NOTE | 2019-06-09 11:01 | PDOC ---
PROGRESS NOTES Chief Complaint Chief Complaint impression Right maxillary odontogenic infection - dental caries with concomitant sinusitis in maxilla. Maxillofacial surgery following . Empiric antibiotics Left mandibular odontogenic infection - dental caries with jaw infection as well. Same. Pain control Sepsis - likely 2/2 right maxillary sinus infection due to dental infection. Surgery consulted. Antibiotics given, fluids administered. Acute transaminitis - RUQ normal, negative hepatitis panel, TSH is WNL. He denies IVDA, but his [facility] guards note he has been near "[place]" while incarcerated Smoker - counseled on cessation. FEN - NPO after midnight PPX - SCDs FULL CODE Dispo - inpatient for maxillary tooth infection invading right maxillary sinus 06/08 pain slow to resolve 2 guards in room History of Present Illness History of Present Illness Mr Mars is a 23yo male incarcerated since 2016 with no PMHx who presents from correctional facility c/o feeling feverish and states his head is melting. Referred from the physician at [facility] and Dr. Moyer for tachycardia and fever on 06/04/2019 in the evening with facial swelling. Was given rocephin and flagyl in [facility] and continued to have pain in his jaw, face, head. In ED tachycardic, afebrile, but WBC 12.4 with left shift. K 3.5, bili 1.2, AST 240, ALT 431 No Abdominal pain, just feels strange and like his head is melting. Pain 7/10. He denies any IVDA or recent sick contacts. No nausea or vomiting or abdominal pain. Denies CP or SOB. CT maxillofacial reveals lucency surrounding the first right maxillary molar with cortical breakthrough into the right maxillary sinus. There is mucosal thickening in the right maxillary sinus. Periapical lucency surrounding the first left mandibular molar with cortical breakthrough along the buccal surface of the mandibular cortex. Mild surrounding soft tissue thickening/inflammation without focal fluid collections suggest abscess. Oral surgeon called, started on IV antibiotics and admitted for further treatment and care 06/08 Afebrile. Pain controlled. LFTs improved. Hepatitis panel and thyroid function tests normal. No CP or SOB awake, nad . Procedure Performed: Sx extraction of caries, non restorable 1,2, 18 I&D of odontogenic abscess upper right maxilla & I&D of odontogenic abscess lower right mandible with drain placement Surgeon: card Anesthesia Type: Jaax Blood Loss: 30 Specimans Obtained: teeth and necrotic bone disposed of in OR Vitals Vitals Vital Signs Date Time Temp Pulse Resp B/P (MAP) Pulse Ox O2 Delivery O2 Flow Rate FiO2 06/09/19 10:01 Room Air 06/09/19 07:20 98.4 56 14 115/70 (85) 99 98.4 Physical Exam General: Alert, Oriented X3, Cooperative, No acute distress, mild distress Heart: Regular rate, Normal S1, Normal S2 Lungs: Clear Abdomen: Normal bowel sounds, Soft, No tenderness, No hepatosplenomegaly, No masses Extremities: No clubbing, No cyanosis, No edema, Normal pulses, No tenderness/swelling Skin: No rashes, No breakdown, No significant lesion Labs LABS Laboratory Tests Test 06/09/19 03:50 White Blood Count 6.3 x10^3/uL (4.0-11.0) Red Blood Count 4.51 x10^6/uL (4.30-5.70) Hemoglobin 13.8 g/dL (13.0-17.5) Hematocrit 41.0 % (39.0-53.0) Mean Corpuscular Volume 91 fL (79-100) Mean Corpuscular Hemoglobin 31 pg (25-35) Mean Corpuscular Hemoglobin Concent 34 g/dL (31-37) Red Cell Distribution Width 13.6 % (11.5-14.5) Platelet Count 230 x10^3/uL (140-400) Neutrophils (%) (Auto) 52 % (31-73) Lymphocytes (%) (Auto) 40 % (24-48) Monocytes (%) (Auto) 7 % (0-9) Eosinophils (%) (Auto) 2 % (0-3) Basophils (%) (Auto) 0 % (0-3) Neutrophils # (Auto) 3.2 x10^3/uL (1.8-7.7) Lymphocytes # (Auto) 2.5 x10^3/uL (1.0-4.8) Monocytes # (Auto) 0.4 x10^3/uL (0.0-1.1) Eosinophils # (Auto) 0.1 x10^3/uL (0.0-0.7) Basophils # (Auto) 0.0 x10^3/uL (0.0-0.2) Sodium Level 139 mmol/L (136-145) Potassium Level 3.9 mmol/L (3.5-5.1) Chloride Level 101 mmol/L (98-107) Carbon Dioxide Level 27 mmol/L (21-32) Anion Gap 11 (6-14) Blood Urea Nitrogen 11 mg/dL (8-26) Creatinine 0.9 mg/dL (0.7-1.3) Estimated GFR (Cockcroft-Gault) 102.8 BUN/Creatinine Ratio 12 (6-20) Glucose Level 88 mg/dL (70-99) Calcium Level 8.6 mg/dL (8.5-10.1) Total Bilirubin 0.3 mg/dL (0.2-1.0) Aspartate Amino Transf (AST/SGOT) 49 U/L (15-37) Alanine Aminotransferase (ALT/SGPT) 163 U/L (16-63) Alkaline Phosphatase 98 U/L (46-116) Total Protein 7.3 g/dL (6.4-8.2) Albumin 3.5 g/dL (3.4-5.0) Albumin/Globulin Ratio 0.9 (1.0-1.7) Assessment and Plan Assessmemt and Plan Problems Medical Problems: (1) Odontogenic infection of jaw Status: Acute Comment Review of Relevant I have reviewed the following items candice (where applicable) has been applied. Labs Laboratory Tests Test 06/09/19 03:50 White Blood Count 6.3 x10^3/uL (4.0-11.0) Red Blood Count 4.51 x10^6/uL (4.30-5.70) Hemoglobin 13.8 g/dL (13.0-17.5) Hematocrit 41.0 % (39.0-53.0) Mean Corpuscular Volume 91 fL (79-100) Mean Corpuscular Hemoglobin 31 pg (25-35) Mean Corpuscular Hemoglobin Concent 34 g/dL (31-37) Red Cell Distribution Width 13.6 % (11.5-14.5) Platelet Count 230 x10^3/uL (140-400) Neutrophils (%) (Auto) 52 % (31-73) Lymphocytes (%) (Auto) 40 % (24-48) Monocytes (%) (Auto) 7 % (0-9) Eosinophils (%) (Auto) 2 % (0-3) Basophils (%) (Auto) 0 % (0-3) Neutrophils # (Auto) 3.2 x10^3/uL (1.8-7.7) Lymphocytes # (Auto) 2.5 x10^3/uL (1.0-4.8) Monocytes # (Auto) 0.4 x10^3/uL (0.0-1.1) Eosinophils # (Auto) 0.1 x10^3/uL (0.0-0.7) Basophils # (Auto) 0.0 x10^3/uL (0.0-0.2) Sodium Level 139 mmol/L (136-145) Potassium Level 3.9 mmol/L (3.5-5.1) Chloride Level 101 mmol/L (98-107) Carbon Dioxide Level 27 mmol/L (21-32) Anion Gap 11 (6-14) Blood Urea Nitrogen 11 mg/dL (8-26) Creatinine 0.9 mg/dL (0.7-1.3) Estimated GFR (Cockcroft-Gault) 102.8 BUN/Creatinine Ratio 12 (6-20) Glucose Level 88 mg/dL (70-99) Calcium Level 8.6 mg/dL (8.5-10.1) Total Bilirubin 0.3 mg/dL (0.2-1.0) Aspartate Amino Transf (AST/SGOT) 49 U/L (15-37) Alanine Aminotransferase (ALT/SGPT) 163 U/L (16-63) Alkaline Phosphatase 98 U/L (46-116) Total Protein 7.3 g/dL (6.4-8.2) Albumin 3.5 g/dL (3.4-5.0) Albumin/Globulin Ratio 0.9 (1.0-1.7) Laboratory Tests Test 06/09/19 03:50 White Blood Count 6.3 x10^3/uL (4.0-11.0) Red Blood Count 4.51 x10^6/uL (4.30-5.70) Hemoglobin 13.8 g/dL (13.0-17.5) Hematocrit 41.0 % (39.0-53.0) Mean Corpuscular Volume 91 fL (79-100) Mean Corpuscular Hemoglobin 31 pg (25-35) Mean Corpuscular Hemoglobin Concent 34 g/dL (31-37) Red Cell Distribution Width 13.6 % (11.5-14.5) Platelet Count 230 x10^3/uL (140-400) Neutrophils (%) (Auto) 52 % (31-73) Lymphocytes (%) (Auto) 40 % (24-48) Monocytes (%) (Auto) 7 % (0-9) Eosinophils (%) (Auto) 2 % (0-3) Basophils (%) (Auto) 0 % (0-3) Neutrophils # (Auto) 3.2 x10^3/uL (1.8-7.7) Lymphocytes # (Auto) 2.5 x10^3/uL (1.0-4.8) Monocytes # (Auto) 0.4 x10^3/uL (0.0-1.1) Eosinophils # (Auto) 0.1 x10^3/uL (0.0-0.7) Basophils # (Auto) 0.0 x10^3/uL (0.0-0.2) Sodium Level 139 mmol/L (136-145) Potassium Level 3.9 mmol/L (3.5-5.1) Chloride Level 101 mmol/L (98-107) Carbon Dioxide Level 27 mmol/L (21-32) Anion Gap 11 (6-14) Blood Urea Nitrogen 11 mg/dL (8-26) Creatinine 0.9 mg/dL (0.7-1.3) Estimated GFR (Cockcroft-Gault) 102.8 BUN/Creatinine Ratio 12 (6-20) Glucose Level 88 mg/dL (70-99) Calcium Level 8.6 mg/dL (8.5-10.1) Total Bilirubin 0.3 mg/dL (0.2-1.0) Aspartate Amino Transf (AST/SGOT) 49 U/L (15-37) Alanine Aminotransferase (ALT/SGPT) 163 U/L (16-63) Alkaline Phosphatase 98 U/L (46-116) Total Protein 7.3 g/dL (6.4-8.2) Albumin 3.5 g/dL (3.4-5.0) Albumin/Globulin Ratio 0.9 (1.0-1.7) Microbiology 06/05/19 Blood Culture - Preliminary, Resulted NO GROWTH AFTER 3 DAYS Medications Current Medications Sodium Chloride 1,000 ml @ 1,000 mls/hr 1X ONCE IV Last administered on 06/05/19at 15:15; Start 06/05/19 at 14:15; Stop 06/05/19 at 15:14; Status DC Fentanyl Citrate (Fentanyl 2ml Vial) 50 mcg 1X ONCE IVP ; Start 06/05/19 at 14:15; Stop 06/05/19 at 14:29; Status DC Clindamycin Phosphate 50 ml @ 100 mls/hr 1X ONCE IV Last administered on 06/05/19at 15:15; Start 06/05/19 at 14:15; Stop 06/05/19 at 14:44; Status DC Iohexol (Omnipaque 300 Mg/ml) 75 ml 1X ONCE IV Last administered on 06/05/19at 15:01; Start 06/05/19 at 15:00; Stop 06/05/19 at 15:01; Status DC Info (CONTRAST GIVEN -- Rx MONITORING) 1 each PRN DAILY PRN MC SEE COMMENTS; Start 06/05/19 at 15:00; Stop 06/07/19 at 14:59; Status DC Morphine Sulfate (Morphine Sulfate) 4 mg PRN Q2HR PRN IV PRN PAIN; Start 06/05/19 at 16:00; Stop 06/06/19 at 15:59; Status DC Sodium Chloride 1,000 ml @ 75 mls/hr [id number] IV Last administered on 06/06/19at 07:56; Start 06/05/19 at 15:58; Stop 06/06/19 at 15:57; Status DC Piperacillin Sod/ Tazobactam Sod 3.375 gm/Sodium Chloride 50 ml @ 100 mls/hr Q6HRS IV Last administered on 06/09/19at 05:35; Start 06/05/19 at 18:00 Metronidazole 100 ml @ 100 mls/hr Q8HRS IV Last administered on 06/09/19at 05:37; Start 06/05/19 at 18:30 Ketorolac Tromethamine (Toradol 30mg Vial) 30 mg PRN Q6HRS PRN IVP PAIN Last administered on 06/06/19at 23:35; Start 06/05/19 at 17:45; Stop 06/10/19 at 17:44 Ondansetron HCl (Zofran) 4 mg PRN Q4HRS PRN IV NAUSEA/VOMITING; Start 06/05/19 at 17:45 Acetaminophen (Tylenol) 650 mg PRN Q4HRS PRN PO TEMP OVER 100.4F OR MILD PAIN; Start 06/05/19 at 17:45 Docusate Sodium (Colace) 100 mg PRN BID PRN PO CONSTIPATION; Start 06/05/19 at 17:45 Lidocaine HCl (Viscous Lidocaine) 15 ml PRN Q4HRS PRN SWSW MOUTH PAIN; Start 06/05/19 at 17:45 Tramadol HCl (Ultram) 50 mg PRN Q6HRS PRN PO MODERATE - SEVERE PAIN Last administered on 06/09/19at 08:45; Start 06/05/19 at 18:00 Chlorhexidine Gluconate (Peridex) 15 ml STK-MED ONCE .ROUTE ; Start 06/06/19 at 09:40; Stop 06/06/19 at 09:40; Status DC Chlorhexidine Gluconate (Peridex) 15 ml 1X ONCE SWSP Last administered on 06/06/19at 14:43; Start 06/06/19 at 10:00; Stop 06/06/19 at 10:01; Status DC Bacitracin 08849 unit/Sodium Chloride 500 ml @ 500 mls/hr 1X ONCE IRR Last administered on 06/06/19at 14:43; Start 06/06/19 at 10:00; Stop 06/06/19 at 10:59; Status DC Gelatin (Gelfoam Size 100) 1 each STK-MED ONCE .ROUTE ; Start 06/06/19 at 10:51; Stop 06/06/19 at 10:51; Status DC Bupivacaine HCl/ Epinephrine Bitart (Sensorcain-Epi 0.5%-1:343503 Mpf) 30 ml STK-MED ONCE .ROUTE Last administered on 06/06/19at 14:43; Start 06/06/19 at 10:51; Stop 06/06/19 at 10:51; Status DC Ondansetron HCl (Zofran) 4 mg PRN Q6HRS PRN IV NAUSEA/VOMITING; Start 06/06/19 at 13:30; Stop 06/07/19 at 13:29; Status DC Fentanyl Citrate (Fentanyl 2ml Vial) 25 mcg PRN Q5MIN PRN IV MILD PAIN 1-3; Start 06/06/19 at 13:30; Stop 06/07/19 at 13:29; Status DC Fentanyl Citrate (Fentanyl 2ml Vial) 50 mcg PRN Q5MIN PRN IV MODERATE TO SEVERE PAIN; Start 06/06/19 at 13:30; Stop 06/07/19 at 13:29; Status DC Morphine Sulfate (Morphine Sulfate) 1 mg PRN Q10MIN PRN IV SEVERE PAIN 7-10; Start 06/06/19 at 13:30; Stop 06/07/19 at 13:29; Status DC Ringer's Solution 1,000 ml @ 30 mls/hr Q24H IV ; Start 06/06/19 at 13:24; Stop 06/06/19 at 16:36; Status DC Hydromorphone HCl (Dilaudid) 0.5 mg PRN Q10MIN PRN IV SEV PAIN, Second choice; Start 06/06/19 at 13:30; Stop 06/07/19 at 13:29; Status DC Prochlorperazine Edisylate (Compazine) 5 mg PACU PRN PRN IV NAUSEA, MRX1 Last administered on 06/06/19at 16:00; Start 06/06/19 at 13:30; Stop 06/07/19 at 13:29; Status DC Rocuronium [place] (Zemuron) 50 mg STK-MED ONCE .ROUTE ; Start 06/06/19 at 13:59; Stop 06/06/19 at 14:00; Status DC Gelatin (Gelfoam Size 12-7mm) 1 each STK-MED ONCE .ROUTE Last administered on 06/06/19at 14:55; Start 06/06/19 at 14:50; Stop 06/06/19 at 14:50; Status DC Propofol 20 ml @ As Directed STK-MED ONCE IV ; Start 06/06/19 at 15:10; Stop 06/06/19 at 15:10; Status DC Lidocaine HCl (Lidocaine Pf 2% Vial) 5 ml STK-MED ONCE .ROUTE ; Start 06/06/19 at 15:10; Stop 06/06/19 at 15:10; Status DC Ondansetron HCl (Zofran) 4 mg STK-MED ONCE .ROUTE ; Start 06/06/19 at 15:10; Stop 06/06/19 at 15:10; Status DC Dexamethasone Sodium Phosphate (Decadron) 4 mg STK-MED ONCE .ROUTE ; Start 06/06/19 at 15:10; Stop 06/06/19 at 15:10; Status DC Sevoflurane (Ultane) 60 ml STK-MED ONCE IH ; Start 06/06/19 at 15:29; Stop 06/06/19 at 15:30; Status DC Neostigmine [place] (Neostigmine Methylsulfate) 5 mg STK-MED ONCE .ROUTE ; Start 06/06/19 at 15:30; Stop 06/06/19 at 15:30; Status DC Glycopyrrolate (Robinul) 1 mg STK-MED ONCE .ROUTE ; Start 06/06/19 at 15:30; Stop 06/06/19 at 15:30; Status DC Prochlorperazine Edisylate (Compazine) 10 mg STK-MED ONCE .ROUTE ; Start 06/06/19 at 15:53; Stop 06/06/19 at 15:53; Status DC Lactobacillus Rhamnosus (Culturelle) 1 cap BID PO Last administered on 06/09/19at 08:45; Start 06/07/19 at 21:00 Vitals/I & O Vital Sign - Last 24 Hours 06/08/19 06/08/19 06/08/19 06/08/19 11:59 15:14 15:59 16:20 Temp 98.0 98.1 98.0 98.1 Pulse 75 68 Resp 16 19 16 19 B/P (MAP) 116/75 (89) 112/58 (76) Pulse Ox 99 94 95 95 O2 Delivery Room Air Room Air Room Air Room Air 06/08/19 06/08/19 06/08/19 06/09/19 19:00 20:00 23:00 00:08 Temp 97.8 98.0 97.8 98.0 Pulse 65 63 Resp 20 18 B/P (MAP) 133/83 (100) 115/64 (81) Pulse Ox 97 97 97 O2 Delivery Room Air Room Air Room Air Room Air 06/09/19 06/09/19 06/09/19 06/09/19 03:00 07:20 07:20 08:45 Temp 97.6 98.4 97.6 98.4 Pulse 60 56 Resp 18 14 B/P (MAP) 113/76 (88) 115/70 (85) Pulse Ox 99 99 O2 Delivery Room Air Room Air Room Air Room Air 06/09/19 10:01 O2 Delivery Room Air Intake and Output 06/08/19 06/08/19 06/09/19 14:59 22:59 06:59 Intake Total 1600 ml Balance 1600 ml ANGELA CHENG MD Jun 09, 2019 11:01
[2019-06-09 11:10] VITALS: BP 115/69
[2019-06-09 15:00] VITALS: BP 109/71
[2019-06-09 19:00] VITALS: BP 133/72
[2019-06-09 23:00] VITALS: BP 144/57
[2019-06-10] MEDS: traMADol 50 MG TABLET PO PRN ×2 (00:14→08:59)
[2019-06-10 03:00] VITALS: BP 119/61
[2019-06-10] MEDS: PIPERACILLIN/TAZOBACTAM 3.375 GM in IV NORMAL SALINE 50ML 50 ML IV SCH ×2 (05:26→12:15)
[2019-06-10 07:00] VITALS: BP 107/71
[2019-06-10] MEDS: LACTOBACILLUS RHAMNOSUS GG 1 CAPSULE. PO SCH (08:59)
--- NOTE | 2019-06-10 10:22 | PDOC ---
PROGRESS NOTES Chief Complaint Chief Complaint DISCHARGE DX Right maxillary odontogenic infection - dental caries with concomitant sinusitis in maxilla. Maxillofacial surgery following . Empiric antibiotics Left mandibular odontogenic infection - dental caries with jaw infection as well. Same. Pain control Sepsis - likely 2/2 right maxillary sinus infection due to dental infection. Surgery consulted. Antibiotics given, fluids administered. Acute transaminitis - RUQ normal, negative hepatitis panel, TSH is WNL. 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 FEN - NPO after midnight PPX - SCDs FULL CODE Dispo - inpatient for maxillary tooth infection invading right maxillary sinus 06/08 pain slow to resolve 2 guards in room 06/09 OK TO D/C PER DR SPEARS D/C PLANNING 33 MIN History of Present Illness History of Present Illness Mr Mars is a 23yo male incarcerated since 2016 with no PMHx who presents from correctional facility c/o feeling feverish and states his head is melting. Referred from the physician at [facility] and Dr. Spears for tachycardia and fever on 06/04/2019 in the evening with facial swelling. Was given rocephin and flagyl in [facility] and continued to have pain in his jaw, face, head. In ED tachycar dic, afebrile, but WBC 12.4 with left shift. K 3.5, bili 1.2, AST 240, ALT 431 No Abdominal pain, just feels strange and like his head is melting. Pain 7/10. He denies any IVDA or recent sick contacts. No nausea or vomiting or abdominal pain. Denies CP or SOB. CT maxillofacial reveals lucency surrounding the first right maxillary molar with cortical breakthrough into the right maxillary sinus. There is mucosal thickening in the right maxillary sinus. Periapical lucency surrounding the first left mandibular molar with cortical breakthrough along the buccal surface of the mandibular cortex. Mild surrounding soft tissue thickening/inflammation without focal fluid collections suggest abscess. Oral surgeon called, started on IV antibiotics and admitted for further treatment and care 06/08 Afebrile. Pain controlled. LFTs improved. Hepatitis panel and thyroid function tests normal. No CP or SOB awake, nad . Procedure Performed: Sx extraction of caries, non restorable 1,2, 18 I&D of odontogenic abscess upper right maxilla & I&D of odontogenic abscess lower right mandible with drain placement Surgeon: violetta Anesthesia Type: Chloe Blood Loss: 30 Specimans Obtained: teeth and necrotic bone disposed of in OR Vitals Vitals Vital Signs Date Time Temp Pulse Resp B/P (MAP) Pulse Ox O2 Delivery O2 Flow Rate FiO2 06/10/19 08:59 Room Air 06/10/19 07:00 97.6 77 17 107/71 (83) 97 97.6 Physical Exam General: Alert, Oriented X3, Cooperative, No acute distress, mild distress Heart: Regular rate, Normal S1, Normal S2 Lungs: Clear Abdomen: Normal bowel sounds, Soft, No tenderness, No hepatosplenomegaly, No masses Extremities: No clubbing, No cyanosis, No edema, Normal pulses, No tenderness/swelling Skin: No rashes, No breakdown, No significant lesion Assessment and Plan Assessmemt and Plan Problems Medical Problems: (1) Odontogenic infection of jaw Status: Acute Comment Review of Relevant I have reviewed the following items candice (where applicable) has been applied. Labs Laboratory Tests Test 06/09/19 03:50 White Blood Count 6.3 x10^3/uL (4.0-11.0) Red Blood Count 4.51 x10^6/uL (4.30-5.70) Hemoglobin 13.8 g/dL (13.0-17.5) Hematocrit 41.0 % (39.0-53.0) Mean Corpuscular Volume 91 fL (79-100) Mean Corpuscular Hemoglobin 31 pg (25-35) Mean Corpuscular Hemoglobin Concent 34 g/dL (31-37) Red Cell Distribution Width 13.6 % (11.5-14.5) Platelet Count 230 x10^3/uL (140-400) Neutrophils (%) (Auto) 52 % (31-73) Lymphocytes (%) (Auto) 40 % (24-48) Monocytes (%) (Auto) 7 % (0-9) Eosinophils (%) (Auto) 2 % (0-3) Basophils (%) (Auto) 0 % (0-3) Neutrophils # (Auto) 3.2 x10^3/uL (1.8-7.7) Lymphocytes # (Auto) 2.5 x10^3/uL (1.0-4.8) Monocytes # (Auto) 0.4 x10^3/uL (0.0-1.1) Eosinophils # (Auto) 0.1 x10^3/uL (0.0-0.7) Basophils # (Auto) 0.0 x10^3/uL (0.0-0.2) Sodium Level 139 mmol/L (136-145) Potassium Level 3.9 mmol/L (3.5-5.1) Chloride Level 101 mmol/L (98-107) Carbon Dioxide Level 27 mmol/L (21-32) Anion Gap 11 (6-14) Blood Urea Nitrogen 11 mg/dL (8-26) Creatinine 0.9 mg/dL (0.7-1.3) Estimated GFR (Cockcroft-Gault) 102.8 BUN/Creatinine Ratio 12 (6-20) Glucose Level 88 mg/dL (70-99) Calcium Level 8.6 mg/dL (8.5-10.1) Total Bilirubin 0.3 mg/dL (0.2-1.0) Aspartate Amino Transf (AST/SGOT) 49 U/L (15-37) Alanine Aminotransferase (ALT/SGPT) 163 U/L (16-63) Alkaline Phosphatase 98 U/L (46-116) Total Protein 7.3 g/dL (6.4-8.2) Albumin 3.5 g/dL (3.4-5.0) Albumin/Globulin Ratio 0.9 (1.0-1.7) Microbiology 06/05/19 Blood Culture - Preliminary, Resulted NO GROWTH AFTER 4 DAYS Medications Current Medications Sodium Chloride 1,000 ml @ 1,000 mls/hr 1X ONCE IV Last administered on 06/05/19at 15:15; Start 06/05/19 at 14:15; Stop 06/05/19 at 15:14; Status DC Fentanyl Citrate (Fentanyl 2ml Vial) 50 mcg 1X ONCE IVP ; Start 06/05/19 at 14:15; Stop 06/05/19 at 14:29; Status DC Clindamycin Phosphate 50 ml @ 100 mls/hr 1X ONCE IV Last administered on 06/05/19at 15:15; Start 06/05/19 at 14:15; Stop 06/05/19 at 14:44; Status DC Iohexol (Omnipaque 300 Mg/ml) 75 ml 1X ONCE IV Last administered on 06/05/19at 15:01; Start 06/05/19 at 15:00; Stop 06/05/19 at 15:01; Status DC Info (CONTRAST GIVEN -- Rx MONITORING) 1 each PRN DAILY PRN MC SEE COMMENTS; Start 06/05/19 at 15:00; Stop 06/07/19 at 14:59; Status DC Morphine Sulfate (Morphine Sulfate) 4 mg PRN Q2HR PRN IV PRN PAIN; Start 06/05/19 at 16:00; Stop 06/06/19 at 15:59; Status DC Sodium Chloride 1,000 ml @ 75 mls/hr [id number] IV Last administered on 06/06/19at 07:56; Start 06/05/19 at 15:58; Stop 06/06/19 at 15:57; Status DC Piperacillin Sod/ Tazobactam Sod 3.375 gm/Sodium Chloride 50 ml @ 100 mls/hr Q6HRS IV Last administered on 06/10/19at 05:26; Start 06/05/19 at 18:00 Metronidazole 100 ml @ 100 mls/hr Q8HRS IV Last administered on 06/10/19at 05:26; Start 06/05/19 at 18:30 Ketorolac Tromethamine (Toradol 30mg Vial) 30 mg PRN Q6HRS PRN IVP PAIN Last administered on 06/06/19at 23:35; Start 06/05/19 at 17:45; Stop 06/10/19 at 17:44 Ondansetron HCl (Zofran) 4 mg PRN Q4HRS PRN IV NAUSEA/VOMITING; Start 06/05/19 at 17:45 Acetaminophen (Tylenol) 650 mg PRN Q4HRS PRN PO TEMP OVER 100.4F OR MILD PAIN; Start 06/05/19 at 17:45 Docusate Sodium (Colace) 100 mg PRN BID PRN PO CONSTIPATION; Start 06/05/19 at 17:45 Lidocaine HCl (Viscous Lidocaine) 15 ml PRN Q4HRS PRN SWSW MOUTH PAIN; Start 06/05/19 at 17:45 Tramadol HCl (Ultram) 50 mg PRN Q6HRS PRN PO MODERATE - SEVERE PAIN Last administered on 06/10/19at 08:59; Start 06/05/19 at 18:00 Chlorhexidine Gluconate (Peridex) 15 ml STK-MED ONCE .ROUTE ; Start 06/06/19 at 09:40; Stop 06/06/19 at 09:40; Status DC Chlorhexidine Gluconate (Peridex) 15 ml 1X ONCE SWSP Last administered on 06/06/19at 14:43; Start 06/06/19 at 10:00; Stop 06/06/19 at 10:01; Status DC Bacitracin 00110 unit/Sodium Chloride 500 ml @ 500 mls/hr 1X ONCE IRR Last administered on 06/06/19at 14:43; Start 06/06/19 at 10:00; Stop 06/06/19 at 1 0:59; Status DC Gelatin (Gelfoam Size 100) 1 each STK-MED ONCE .ROUTE ; Start 06/06/19 at 10:51; Stop 06/06/19 at 10:51; Status DC Bupivacaine HCl/ Epinephrine Bitart (Sensorcain-Epi 0.5%-1:414210 Mpf) 30 ml STK-MED ONCE .ROUTE Last administered on 06/06/19at 14:43; Start 06/06/19 at 10:51; Stop 06/06/19 at 10:51; Status DC Ondansetron HCl (Zofran) 4 mg PRN Q6HRS PRN IV NAUSEA/VOMITING; Start 06/06/19 at 13:30; Stop 06/07/19 at 13:29; Status DC Fentanyl Citrate (Fentanyl 2ml Vial) 25 mcg PRN Q5MIN PRN IV MILD PAIN 1-3; Start 06/06/19 at 13:30; Stop 06/07/19 at 13:29; Status DC Fentanyl Citrate (Fentanyl 2ml Vial) 50 mcg PRN Q5MIN PRN IV MODERATE TO SEVERE PAIN; Start 06/06/19 at 13:30; Stop 06/07/19 at 13:29; Status DC Morphine Sulfate (Morphine Sulfate) 1 mg PRN Q10MIN PRN IV SEVERE PAIN 7-10; Start 06/06/19 at 13:30; Stop 06/07/19 at 13:29; Status DC Ringer's Solution 1,000 ml @ 30 mls/hr Q24H IV ; Start 06/06/19 at 13:24; Stop 06/06/19 at 16:36; Status DC Hydromorphone HCl (Dilaudid) 0.5 mg PRN Q10MIN PRN IV SEV PAIN, Second choice; Start 06/06/19 at 13:30; Stop 06/07/19 at 13:29; Status DC Prochlorperazine Edisylate (Compazine) 5 mg PACU PRN PRN IV NAUSEA, MRX1 Last administered on 06/06/19at 16:00; Start 06/06/19 at 13:30; Stop 06/07/19 at 13:29; Status DC Rocuronium [place] (Zemuron) 50 mg STK-MED ONCE .ROUTE ; Start 06/06/19 at 13:59; Stop 06/06/19 at 14:00; Status DC Gelatin (Gelfoam Size 12-7mm) 1 each STK-MED ONCE .ROUTE Last administered on 06/06/19at 14:55; Start 06/06/19 at 14:50; Stop 06/06/19 at 14:50; Status DC Propofol 20 ml @ As Directed STK-MED ONCE IV ; Start 06/06/19 at 15:10; Stop 06/06/19 at 15:10; Status DC Lidocaine HCl (Lidocaine Pf 2% Vial) 5 ml STK-MED ONCE .ROUTE ; Start 06/06/19 at 15:10; Stop 06/06/19 at 15:10; Status DC Ondansetron HCl (Zofran) 4 mg STK-MED ONCE .ROUTE ; Start 06/06/19 at 15:10; Stop 06/06/19 at 15:10; Status DC Dexamethasone Sodium Phosphate (Decadron) 4 mg STK-MED ONCE .ROUTE ; Start 06/06/19 at 15:10; Stop 06/06/19 at 15:10; Status DC Sevoflurane (Ultane) 60 ml STK-MED ONCE IH ; Start 06/06/19 at 15:29; Stop 06/06/19 at 15:30; Status DC Neostigmine [place] (Neostigmine Methylsulfate) 5 mg STK-MED ONCE .ROUTE ; Start 06/06/19 at 15:30; Stop 06/06/19 at 15:30; Status DC Glycopyrrolate (Robinul) 1 mg STK-MED ONCE .ROUTE ; Start 06/06/19 at 15:30; Stop 06/06/19 at 15:30; Status DC Prochlorperazine Edisylate (Compazine) 10 mg STK-MED ONCE .ROUTE ; Start 06/06/19 at 15:53; Stop 06/06/19 at 15:53; Status DC Lactobacillus Rhamnosus (Culturelle) 1 cap BID PO Last administered on 06/10/19at 08:59; Start 06/07/19 at 21:00 Vitals/I & O Vital Sign - Last 24 Hours 06/09/19 06/09/19 06/09/19 06/09/19 11:10 15:00 17:54 18:56 Temp 98.0 98.4 98.0 98.4 Pulse 64 67 Resp 14 18 B/P (MAP) 115/69 (84) 109/71 (84) Pulse Ox 96 96 O2 Delivery Room Air Room Air Room Air Room Air 06/09/19 06/09/19 06/09/19 06/10/19 19:00 20:00 23:00 00:14 Temp 99.1 98.6 99.1 98.6 Pulse 82 70 Resp 18 18 B/P (MAP) 133/72 (92) 144/57 (86) Pulse Ox 96 97 97 O2 Delivery Room Air Room Air 06/10/19 06/10/19 06/10/19 03:00 07:00 08:59 Temp 97.9 97.6 97.9 97.6 Pulse 78 77 Resp 18 17 B/P (MAP) 119/61 (80) 107/71 (83) Pulse Ox 98 97 O2 Delivery Room Air Room Air Intake and Output 06/09/19 06/09/19 06/10/19 15:00 23:00 07:00 Intake Total 50 ml 180 ml 120 ml Balance 50 ml 180 ml 120 ml ANGELA CHENG MD Jun 10, 2019 10:22
[2019-06-10 11:00] VITALS: BP 120/63
--- NOTE | 2019-06-10 12:20 | PDOC3 ---
Discharge Summary Date of Admission: Jun 05, 2019 Date of Discharge: Jun 10, 2019 Follow-Up: 1-2 days Admitting Diagnosis comment: DISCHARGE DX Right maxillary odontogenic infection - dental caries with concomitant sinusitis in maxilla. Maxillofacial surgery following . Empiric antibiotics Left mandibular odontogenic infection - dental caries with jaw infection as well. Same. Pain control Sepsis - likely 2/2 right maxillary sinus infection due to dental infection. Surgery consulted. Antibiotics given, fluids administered. Acute transaminitis - RUQ normal, negative hepatitis panel, TSH is WNL. 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 FEN - NPO after midnight PPX - SCDs FULL CODE Dispo - inpatient for maxillary tooth infection invading right maxillary sinus 06/08 pain slow to resolve 2 guards in room 06/09 OK TO D/C PER DR SPEARS D/C PLANNING 33 MIN History of Present Illness History of Present Illness Mr Mars is a 23yo male incarcerated since 2017 with no PMHx who presents from correctional facility c/o feeling feverish and states his head is melting. Referred from the physician at [facility] and Dr. Spears for tachycardia and fever on 06/04/2019 in the evening with facial swelling. Was given rocephin and flagyl in [facility] and continued to have pain in his jaw, face, head. In ED tachycardic, afebrile, but WBC 12.4 with left shift. K 3.5, bili 1.2, AST 240, ALT 431 No Abdominal pain, just feels strange and like his head is melting. Pain 7/10. He denies any IVDA or recent sick contacts. No nausea or vomiting or abdominal pain. Denies CP or SOB. CT maxillofacial reveals lucency surrounding the first right maxillary molar with cortical breakthrough into the right maxillary sinus. There is mucosal thickening in the right maxillary sinus. Periapical lucency surrounding the first left mandibular molar with cortical breakthrough along the buccal surface of the mandibular cortex. Mild surrounding soft tissue thickening/inflammation without focal fluid collections suggest abscess. Oral surgeon called, started on IV antibiotics and admitted for further treatment and care 06/08 Afebrile. Pain controlled. LFTs improved. Hepatitis panel and thyroid function tests normal. No CP or SOB awake, nad 06/09 D/C PLANNING 33 MIN . Procedure Performed: Sx extraction of caries, non restorable 1,2, 18 I&D of odontogenic abscess upper right maxilla & I&D of odontogenic abscess lower right mandible with drain placement Surgeon: violetta Anesthesia Type: Chloe Blood Loss: 30 Specimans Obtained: teeth and necrotic bone disposed of in OR Vitals Vitals Vital Signs Date Time Temp Pulse Resp B/P (MAP) Pulse Ox O2 Delivery O2 Flow Rate FiO2 06/10/19 08:59 Room Air 06/10/19 07:00 97.6 77 17 107/71 (83) 97 97.6 Physical Exam General: Alert, Oriented X3, Cooperative, No acute distress, mild distress Heart: Regular rate, Normal S1, Normal S2 Lungs: Clear Abdomen: Normal bowel sounds, Soft, No tenderness, No hepatosplenomegaly, No masses Extremities: No clubbing, No cyanosis, No edema, Normal pulses, No tenderness/swelling Skin: No rashes, No breakdown, No significant lesion FINAL DIAGNOSIS Problems Medical Problems: (1) Odontogenic infection of jaw Status: Acute Brief Hospital Course Mr. Mars is a 23 old [sex] who presented with [ OTODONIC JAW INFECTION] CONDITION AT DISCHARGE: Improved Discharge Medications Current Medications Sodium Chloride 1,000 ml @ 1,000 mls/hr 1X ONCE IV Last administered on 06/05/19at 15:15; Start 06/05/19 at 14:15; Stop 06/05/19 at 15:14; Status DC Fentanyl Citrate (Fentanyl 2ml Vial) 50 mcg 1X ONCE IVP ; Start 06/05/19 at 14:15; Stop 06/05/19 at 14:29; Status DC Clindamycin Phosphate 50 ml @ 100 mls/hr 1X ONCE IV Last administered on 06/05/19at 15:15; Start 06/05/19 at 14:15; Stop 06/05/19 at 14:44; Status DC Iohexol (Omnipaque 300 Mg/ml) 75 ml 1X ONCE IV Last administered on 06/05/19at 15:01; Start 06/05/19 at 15:00; Stop 06/05/19 at 15:01; Status DC Info (CONTRAST GIVEN -- Rx MONITORING) 1 each PRN DAILY PRN MC SEE COMMENTS; Start 06/05/19 at 15:00; Stop 06/07/19 at 14:59; Status DC Morphine Sulfate (Morphine Sulfate) 4 mg PRN Q2HR PRN IV PRN PAIN; Start 06/05/19 at 16:00; Stop 06/06/19 at 15:59; Status DC Sodium Chloride 1,000 ml @ 75 mls/hr [id number] IV Last administered on 06/06/19at 07:56; Start 06/05/19 at 15:58; Stop 06/06/19 at 15:57; Status DC Piperacillin Sod/ Tazobactam Sod 3.375 gm/Sodium Chloride 50 ml @ 100 mls/hr Q6HRS IV Last administered on 06/10/19at 12:15; Start 06/05/19 at 18:00 Metronidazole 100 ml @ 100 mls/hr Q8HRS IV Last administered on 06/10/19at 05:26; Start 06/05/19 at 18:30 Ketorolac Tromethamine (Toradol 30mg Vial) 30 mg PRN Q6HRS PRN IVP PAIN Last administered on 06/06/19at 23:35; Start 06/05/19 at 17:45; Stop 06/10/19 at 17:44 Ondansetron HCl (Zofran) 4 mg PRN Q4HRS PRN IV NAUSEA/VOMITING; Start 06/05/19 at 17:45 Acetaminophen (Tylenol) 650 mg PRN Q4HRS PRN PO TEMP OVER 100.4F OR MILD PAIN; Start 06/05/19 at 17:45 Docusate Sodium (Colace) 100 mg PRN BID PRN PO CONSTIPATION; Start 06/05/19 at 17:45 Lidocaine HCl (Viscous Lidocaine) 15 ml PRN Q4HRS PRN SWSW MOUTH PAIN; Start 06/05/19 at 17:45 Tramadol HCl (Ultram) 50 mg PRN Q6HRS PRN PO MODERATE - SEVERE PAIN Last administered on 06/10/19at 08:59; Start 06/05/19 at 18:00 Chlorhexidine Gluconate (Peridex) 15 ml STK-MED ONCE .ROUTE ; Start 06/06/19 at 09:40; Stop 06/06/19 at 09:40; Status DC Chlorhexidine Gluconate (Peridex) 15 ml 1X ONCE SWSP Last administered on 06/06/19at 14:43; Start 06/06/19 at 10:00; Stop 06/06/19 at 10:01; Status DC Bacitracin 29325 unit/Sodium Chloride 500 ml @ 500 mls/hr 1X ONCE IRR Last administered on 06/06/19at 14:43; Start 06/06/19 at 10:00; Stop 06/06/19 at 10:59; Status DC Gelatin (Gelfoam Size 100) 1 each STK-MED ONCE .ROUTE ; Start 06/06/19 at 10:51; Stop 06/06/19 at 10:51; Status DC Bupivacaine HCl/ Epinephrine Bitart (Sensorcain-Epi 0.5%-1:[id number] Mpf) 30 ml STK-MED ONCE .ROUTE Last administered on 06/06/19at 14:43; Start 06/06/19 at 10:51; Stop 06/06/19 at 10:51; Status DC Ondansetron HCl (Zofran) 4 mg PRN Q6HRS PRN IV NAUSEA/VOMITING; Start 06/06/19 at 13:30; Stop 06/07/19 at 13:29; Status DC Fentanyl Citrate (Fentanyl 2ml Vial) 25 mcg PRN Q5MIN PRN IV MILD PAIN 1-3; Start 06/06/19 at 13:30; Stop 06/07/19 at 13:29; Status DC Fentanyl Citrate (Fentanyl 2ml Vial) 50 mcg PRN Q5MIN PRN IV MODERATE TO SEVERE PAIN; Start 06/06/19 at 13:30; Stop 06/07/19 at 13:29; Status DC Morphine Sulfate (Morphine Sulfate) 1 mg PRN Q10MIN PRN IV SEVERE PAIN 7-10; Start 06/06/19 at 13:30; Stop 06/07/19 at 13:29; Status DC Ringer's Solution 1,000 ml @ 30 mls/hr Q24H IV ; Start 06/06/19 at 13:24; Stop 06/06/19 at 16:36; Status DC Hydromorphone HCl (Dilaudid) 0.5 mg PRN Q10MIN PRN IV SEV PAIN, Second choice; Start 06/06/19 at 13:30; Stop 06/07/19 at 13:29; Status DC Prochlorperazine Edisylate (Compazine) 5 mg PACU PRN PRN IV NAUSEA, MRX1 Last administered on 06/06/19at 16:00; Start 06/06/19 at 13:30; Stop 06/07/19 at 13:29; Status DC Rocuronium [place] (Zemuron) 50 mg STK-MED ONCE .ROUTE ; Start 06/06/19 at 13:59; Stop 06/06/19 at 14:00; Status DC Gelatin (Gelfoam Size 12-7mm) 1 each STK-MED ONCE .ROUTE Last administered on 06/06/19at 14:55; Start 06/06/19 at 14:50; Stop 06/06/19 at 14:50; Status DC Propofol 20 ml @ As Directed STK-MED ONCE IV ; Start 06/06/19 at 15:10; Stop 06/06/19 at 15:10; Status DC Lidocaine HCl (Lidocaine Pf 2% Vial) 5 ml STK-MED ONCE .ROUTE ; Start 06/06/19 at 15:10; Stop 06/06/19 at 15:10; Status DC Ondansetron HCl (Zofran) 4 mg STK-MED ONCE .ROUTE ; Start 06/06/19 at 15:10; Stop 06/06/19 at 15:10; Status DC Dexamethasone Sodium Phosphate (Decadron) 4 mg STK-MED ONCE .ROUTE ; Start at 15:10; Stop 06/06/19 at 15:10; Status DC Sevoflurane (Ultane) 60 ml STK-MED ONCE IH ; Start 06/06/19 at 15:29; Stop at 15:30; Status DC Neostigmine [place] (Neostigmine Methylsulfate) 5 mg STK-MED ONCE .ROUTE ; Start 06/06/19 at 15:30; Stop 06/06/19 at 15:30; Status DC Glycopyrrolate (Robinul) 1 mg STK-MED ONCE .ROUTE ; Start 06/06/19 at 15:30; Stop 06/06/19 at 15:30; Status DC Prochlorperazine Edisylate (Compazine) 10 mg STK-MED ONCE .ROUTE ; Start 06/06/19 at 15:53; Stop 06/06/19 at 15:53; Status DC Lactobacillus Rhamnosus (Culturelle) 1 cap BID PO Last administered on 06/10/19at 08:59; Start 06/07/19 at 21:00 Vital Signs Vital Signs Date Time Temp Pulse Resp B/P (MAP) Pulse Ox O2 Delivery O2 Flow Rate FiO2 06/10/19 11:00 97.7 77 17 120/63 (82) 96 Room Air 97.7 Labs Laboratory Tests Test 06/09/19 03:50 White Blood Count 6.3 x10^3/uL (4.0-11.0) Red Blood Count 4.51 x10^6/uL (4.30-5.70) Hemoglobin 13.8 g/dL (13.0-17.5) Hematocrit 41.0 % (39.0-53.0) Mean Corpuscular Volume 91 fL (79-100) Mean Corpuscular Hemoglobin 31 pg (25-35) Mean Corpuscular Hemoglobin Concent 34 g/dL (31-37) Red Cell Distribution Width 13.6 % (11.5-14.5) Platelet Count 230 x10^3/uL (140-400) Neutrophils (%) (Auto) 52 % (31-73) Lymphocytes (%) (Auto) 40 % (24-48) Monocytes (%) (Auto) 7 % (0-9) Eosinophils (%) (Auto) 2 % (0-3) Basophils (%) (Auto) 0 % (0-3) Neutrophils # (Auto) 3.2 x10^3/uL (1.8-7.7) Lymphocytes # (Auto) 2.5 x10^3/uL (1.0-4.8) Monocytes # (Auto) 0.4 x10^3/uL (0.0-1.1) Eosinophils # (Auto) 0.1 x10^3/uL (0.0-0.7) Basophils # (Auto) 0.0 x10^3/uL (0.0-0.2) Sodium Level 139 mmol/L (136-145) Potassium Level 3.9 mmol/L (3.5-5.1) Chloride Level 101 mmol/L (98-107) Carbon Dioxide Level 27 mmol/L (21-32) Anion Gap 11 (6-14) Blood Urea Nitrogen 11 mg/dL (8-26) Creatinine 0.9 mg/dL (0.7-1.3) Estimated GFR (Cockcroft-Gault) 102.8 BUN/Creatinine Ratio 12 (6-20) Glucose Level 88 mg/dL (70-99) Calcium Level 8.6 mg/dL (8.5-10.1) Total Bilirubin 0.3 mg/dL (0.2-1.0) Aspartate Amino Transf (AST/SGOT) 49 U/L (15-37) Alanine Aminotransferase (ALT/SGPT) 163 U/L (16-63) Alkaline Phosphatase 98 U/L (46-116) Total Protein 7.3 g/dL (6.4-8.2) Albumin 3.5 g/dL (3.4-5.0) Albumin/Globulin Ratio 0.9 (1.0-1.7) Allergies Allergies Coded Allergies Type Severity Reaction Last Updated Verified No Known Drug Allergies 06/05/19 No Disposition/Orders: Other (D/C TO NURSING HOME) ANGELA CHENG MD Jun 10, 2019 12:20
[2019-06-10] MEDS ORDERED: ACET325T9 PO (12:22)
[2019-06-10] MEDS ORDERED: AMOX1TAB61 PO (12:22)
[2019-06-10] MEDS ORDERED: LACT1CAP19 PO (12:22)
[2019-06-10] MEDS ORDERED: LIDO20SO10 SWSW (12:22)
--- NOTE | 2019-06-10 12:23 | SNU/HH DC ---
DISCHARGE ORDERS DISCHARGE INFORMATION: FINAL DIAGNOSIS Problems Medical Problems: (1) Odontogenic infection of jaw Status: Acute CONDITION ON DISCHARGE: Stable CODE STATUS: Code Status: Full CUSTODIAL: SNF STAY <30 DAYS: No HOSPICE: HOSPICE: No HOSPICE EVAL & TREAT: No LTAC: ADMIT TO LTAC: No POST DISCHARGE ORDERS: ACTIVITY ORDERS: Activity as tolerated DIET AFTER DISCHARGE: Regular CHECKS AFTER DISCHARGE: CHECKS AFTER DISCHARGE: Check blood press - daily DISCHARGE MEDICATIONS: Home Meds Active Scripts Amoxicillin/Potassium Clav (AUGMENTIN 875-125 TABLET) 1 Each Tablet, 1 TAB PO BID for DENTAL INFECTION for 10 Days, #20 TAB 0 Refills Prov:ANGELA CHENG MD 06/10/19 Lactobacillus Rhamnosus Gg (CULTURELLE) 1 Each Cap.sprink, 1 CAP PO BID for SUPPLEMENT for 30 Days, #60 CAP Prov:ANGELA CHENG MD 06/10/19 Lidocaine HCl (Lidocaine HCl Viscous) 15 Ml Solution, 15 ML SWSW PRN Q4HRS PRN for MOUTH PAIN for 10 Days, #120 MISC Prov:ANGELA CHENG MD 06/10/19 Acetaminophen (TYLENOL) 325 Mg Tablet, 650 MG PO PRN Q4HRS PRN for TEMP OVER 100.4F OR MILD PAIN for 30 Days, #60 TAB Prov:ANGELA CHENG MD 06/10/19 ANGELA CHENG MD Jun 10, 2019 12:23
--- NOTE | 2019-06-10 16:00 | NUR ---
Discharge Note: Patient was discharged back to [facility]. Patients IV was discontinued without any complications per [employer]. Report was called to BECKIE Adame at the facility. Patients questions were answered. Patient was transferred over to facility via facilities transportation with 2 guards. Patient took all personal belongings with him.
== END 2019-06-10 16:00 | disposition home or self-care (01) | DRG 872 ==
LOC: ER 13:07 → EEVIPCON 13:07 → 5 SOUTH 16:00
PROVIDERS: ADMIT Internal Medicine; ATTEND Internal Medicine
PROC: 0C9 Mouth and Throat, Drainage (ICD-10-PCS; 2019-06-06)
PROC: 0CDWXZ1 Extraction of Upper Tooth, Multiple, External Approach (ICD-10-PCS; principal; 2019-06-06 14:00)
DX: A41.9 Sepsis, unspecified organism (principal); K80.20 Calculus of gallbladder without cholecystitis without obstruction; F17.210 Nicotine dependence, cigarettes, uncomplicated; J32.0 Chronic maxillary sinusitis; Z82.49 Family history of ischemic heart disease and other diseases of the circulatory system; Z83.3 Family history of diabetes mellitus; J01.00 Acute maxillary sinusitis, unspecified; R74.0 Nonspecific elevation of levels of transaminase and lactic acid dehydrogenase [LDH]; K04.6 Periapical abscess with sinus; Z71.6 Tobacco abuse counseling; M27.2 Inflammatory conditions of jaws
CPT/HCPCS: 36415; 70487; 71045; 76705; 80053; 81001; 83605; 84443; 85007; 85025; 85651; 86140; 86705; 86709; 86803; 87040; 87340; 96365; A7015; J0780; J1100; J1885; J2405; J2543; J2704; J2710; J3490; J7030; J7120; Q9967; 99285-25; G0378